=== PATIENT | female | born 1935 | race Caucasian/White ===

== ENCOUNTER → 2024-03-24 09:35 | Outpatient (REF) | payer MEDICARE, SELFPAY | LOC: RAD 09:35 | PROVIDERS: ATTENDING PHYSICIAN Internal Medicine Critical Care Medicine; FAMILY PHYSICIAN Family Medicine | DX: J47.9 Bronchiectasis, uncomplicated (principal) | CPT/HCPCS: 71250 ==

== ENCOUNTER 2024-04-30 06:28 | Day surgery (SDC) | payer MEDICARE, SELFPAY ==
[2024-04-30] VITALS (13 sets, daily range): BP systolic 97–141; BP diastolic 43–64; BMI 26.6
--- NOTE | 2024-04-30 09:30 | SUR.PHASEI ---
Pt sat's continue to drop to 86% on RA at times. Denies feeling SOB. Working on deep breathing. IS given. updated and will order a neb treatment and come and check on pt. Daughter updated over phone. Will continue to monitor pt. closely
[2024-04-30] MEDS: DUONEB 3 ML INH (09:42)
[2024-04-30 11:09] LABS: Brochalveolar Lavage Color Red; Brochalveolar Lavage Volume 5.5 ml
[2024-04-30 11:10] LABS: Brochalveolar Lavage Character Bloody (Clear)
[2024-04-30 11:10] LABS: Brochalveolar Lavage Volume 4.5 ml
[2024-04-30 11:11] LABS: Brochalveolar Lavage Character Clear (Clear); Brochalveolar Lavage Color Colorless
[2024-04-30 12:49] LABS: Brochalveolar Lavage WBC 76000 cells/ml
[2024-04-30 12:49] LABS: Brochalveolar Lavage WBC 187000 cells/ml
[2024-04-30 15:11] LABS: BAL Eosinophils 3 %; BAL Lymphocytes 9.5 %; BAL Macrophages 4 %; BAL Neutrophils 83.5 %
[2024-04-30 15:57] LABS: BAL Lymphocytes 4.5 %; BAL Macrophages 4 %; BAL Neutrophils 91.5 %
== END 2024-04-30 11:05 | disposition home or self-care (01) ==
LOC: GI 06:28
PROVIDERS: ATTENDING PHYSICIAN Internal Medicine Critical Care Medicine
DX: R05.3 Chronic cough (principal); R91.8 Other nonspecific abnormal finding of lung field; J18.1 Lobar pneumonia, unspecified organism; R09.89 Other specified symptoms and signs involving the circulatory and respiratory systems
CPT/HCPCS: 31645; 31624; 88305; 71045; 87015; 87070; 87102; 87116; 87205; 88112; 89051; 94640

== ENCOUNTER 2024-05-10 22:50 | Inpatient (IN) | payer MEDICARE, SELFPAY ==
[2024-05-10 19:46] VITALS: BP 176/82
[2024-05-10 19:54] VITALS: BMI 28.1
[2024-05-10 20:00] VITALS: BP 171/161
[2024-05-10 20:08] LABS: % Basophils 0.6 % (0-2); % Immature Granulocytes 0.5 % (0-0.5); % Lymphocytes 20.3 % (20.5-51.1); % Monocytes 9.5 % (1.7-9.3); % Neutrophils 67.1 % (42.2-75.2); Absolute Basophils 0.1 10^3/uL (0-0.2); Absolute Eosinophils 0.3 10^3/uL (0-0.7); Absolute Immature Granulocytes 0.1 10^3/uL (0-0.05); Absolute Lymphocytes 2.5 10^3/uL (1.2-3.4); Absolute Monocytes 1.2 10^3/uL (0.1-0.6); Absolute Neutrophils 8.4 10^3/uL (1.4-6.5); Hematocrit 34.3 % (37.0-47.0); Hemoglobin 12.1 g/dL (12.0-16.0); Mean Corp Hgb Conc. 35.3 g/dL (33.0-37.0); Mean Corpuscular Hgb 30.1 pg (27.0-31.0); Mean Corpuscular Volume 85.3 fL (81.0-99.0); Mean Platelet Volume 9.9 fL (7.4-10.4); Nucleated Red Blood Cells % 0 %; Platelet Count 349 10^3/uL (130-400); Red Blood Cell Count 4.02 10^6/uL (4.20-5.40); Red Cell Dist. Width 12.7 % (11.5-14.5); White Blood Cell Count 12.5 10^3/uL (4.8-10.8)
--- NOTE | 2024-05-10 20:14 | ED.MUSCINJ ---
HPI-Injury
General
Chief Complaint: Musculo-Skeletal Complaint
Source: patient and family
Exam Limitations: none
Time Seen by Provider: 05/10/24 20:13
Nursing documentation reviewed up to this point in time: agreed with
History of Present Illness-Injury
Initial Injury comments:
88-year-old female presents emergency room complaining of left hip pain after a fall. She fell backwards and hit her head.
Past History
Past History
ED Past Medical History: Cancer (Melanoma right arm), HTN, Hypercholesterolemia and Other (Macular degeneration)
ED Past Surgical History: Appendectomy
Social History
Tobacco: Non-smoker
Alcohol: None
Drug: None
Living: with family
Review of Systems
Review of Systems
Allergies reviewed?: Yes
All Other Systems: Not applicable
Constitutional: Reports no symptoms
EENT: Reports no symptoms
Respiratory: Reports no symptoms
Cardiac: Reports no symptoms
ABD/GI: Reports no symptoms
: Reports no symptoms
Musculoskeletal: Reports joint pain
Skin: Reports no symptoms
Neurological: Reports no symptoms
Endocrine: Reports no symptoms
Hematologic/Lymphatic: Reports no symptoms
Psychiatric: Reports no symptoms
Phy Exam
Physical Exam
Physical Exam:
Physical Exam
General: no apparent distress, not acutely ill
Neck: supple. no meningeal signs. normal posterior pharynx
Heart: s1/s2 regular rate and rhythm, no murmur. equal radial
pulses.
HEENT: Pupils equal round reactive to light, EOMI
Lungs: no acute respiratory distress. clear bilaterally
Abdomen: normal bowel sounds. not tender. no CVAT
Neuro: alert and oriented. no focal neurological deficits cranial nerves II through XII intact
Skin: no rash
Psychiatric: well kept. interactive and cooperative
Extremities: no edema. no calf tenderness. negative homans. good distal pulses, left leg shortened and externally rotated, proximal femur tenderness
Injury Course
Orders/Labs/Results
Orders:
Orders
05/10/24 Breakfast
Cholesterol Lowering
Cholesterol Lowering: Sodium, 2 Gram
05/10/24 19:44
Electrocardiogram (*1) Urgent
Reason for Study: Fatigue / Weakness
Hip, Left 2-3 Views [CR Hip - LT w/wo Pel 2-3 Vw*] Urgent
Comment:
Reason For Exam: fall/ pain
Include a pelvis x-ray?: Yes
05/10/24 19:45
EKG- Treatment ONCE
05/10/24 19:58
Complete Blood Count/With Diff Urgent
Comprehensive Metabolic Panel Urgent
Serum Osmolality Urgent
Comment: ADD ON
05/10/24 20:14
HYDROmorphone [Dilaudid] 1 mg IV NOW STA
Ondansetron Injectable [Zofran] 4 mg IV NOW STA
05/10/24 20:22
CT Head W/o Iv Contrast Urgent
Comment:
Reason For Exam: fall, hit head
05/10/24 20:26
Type+Screen Urgent
05/10/24 21:28
Femur, Left 2 View [CR Femur - Left Min 2 Vw] Urgent
Comment:
Reason For Exam: fall, proximal femur pain
05/10/24 22:03
Admit/Transfer Patient As Directed
Co-Sign Provider:
Level of Care: Inpatient admission
Assign to:: Medical/Surgical
Physician / Group: shefali
Diagnosis: hip fracture
Reason for Hospitalization: hip fracture
Expected length of stay greater than two midnights?: Yes
ELOS- Estimated Length of Stay in days: 3
I certify the patient meets the requirements for IP care: Yes
05/10/24 22:04
Code Status As Directed
Resuscitation Status: Full Code
05/10/24 22:08
Add On- LAB Routine
Tests Added?: serum osmolality
Urine Creatinine Routine
Urine Osmolality Random [Osmolality, Random Urine] Routine
Urine Sodium Routine
05/10/24 22:29
Consult Notification Routine
Specialty to Notify: Infectious Disease
INFECTIOUS DISEASE CONSULT Routine
Consulting Provider: Silvana Dimas
Was physician already notified: No
Reason for consult: hxt of M avium
05/10/24 23:06
Docusate Sodium [Colace] 100 mg PO BID
HYDROmorphone [Dilaudid] 0.5 mg IV Q4HPRN PRN
HydrALAZINE [Apresoline] 10 mg IV Q6HPRN PRN
Magnesium Hydroxide [Milk of Magnesia] 30 ml PO DAILYPRN PRN
Melatonin 5 mg PO HSPRN PRN
Oxycodone [Roxicodone] 5 mg PO Q4HPRN PRN
Sennosides [Senokot] 17.2 mg PO BID
Tamsulosin [Flomax] 0.4 mg PO DAILYPRN PRN
05/10/24 23:06
ORTHOPEDIC CONSULT Routine
Consulting Provider: Daniel Mahoney
Was physician already notified: Yes
Activity As Directed
Activity Level: Bedrest
Bladder Scan As Directed
Follow Bladder Retention/Intermittent Cath Algorithm?: Yes
PRN if no void in __ hours: 6
Comment: if not voiding 6 hrs upon arrival to floor, bladder scan & follow algorithm
Intake/ Output As Directed
Frequency: Per unit guidelines
Straight Cath As Directed
Frequency: Per Retention Algorithm
Additional Instructions: straight cath as needed per acute urinary retention algorithm for 24 hrs
Additional Instructions: for bladder scan greater than 400 mL
Venous Foot Pumps As Directed
Location: Bilateral feet
Vital Signs As Directed
Frequency: Per unit guidelines
DX Deep Vein Thrombosis Video Routine
05/11/24 00:00
Acetaminophen [Tylenol] 650 mg PO Q4HWA
05/11/24 Breakfast
NPO
Allow oral meds: Yes
Allow clear liquids: No
NPO for procedure after (time): 05/11 0000
05/11/24 08:00
Amlodipine [Norvasc] 5 mg PO DAILY
Atenolol [Tenormin] 50 mg PO DAILY
Cholecalciferol (Vitamin D3) [VITAMIN D3 (cholecalciferol)] 25 mcg PO DAILY
Vit C/Vit E/Lutein/Min/Trona-3 [Ocuvite Softgel] 1 cap PO DAILY
fluticasone propionate 2 spray NASAL BID
05/11/24 22:00
Atenolol [Tenormin] 25 mg PO HS
Abnormal Lab Results
05/10/24
19:58
WBC 12.5 H 10^3/uL
(4.8-10.8)
RBC 4.02 L 10^6/uL
(4.20-5.40)
Hct 34.3 L %
(37.0-47.0)
Abs Immat Gran (auto) 0.1 H 10^3/uL
(0-0.05)
Absolute Neuts (auto) 8.4 H 10^3/uL
(1.4-6.5)
Absolute Monos (auto) 1.2 H 10^3/uL
(0.1-0.6)
Lymphocytes % 20.3 L %
(20.5-51.1)
Monocytes % 9.5 H %
(1.7-9.3)
Sodium 130 L mmol/L
(135-145)
Chloride 94 L mmol/L
(98-107)
BUN 23 H mg/dl
(7-17)
Creatinine 1.2 H mg/dL
(0.6-1.0)
Glucose 116 H mg/dl
(70-99)
Alkaline Phosphatase 143 H U/L
(38-126)
05/10/24 19:58
05/10/24 19:58
MDM/Problems Addressed
Differential Diagnosis Includes:
Intracranial hemorrhage, left hip fracture
MDM/Problems Addressed:
88-year-old female with fall, left hip fracture. CT head pending, left hip x-ray pending. Plan to admit to hospitalist with orthopedic consult.
Chronic conditions affecting care: HTN
Acute Exacerbation and/or Progression of Chronic Illness: HTN
*Radiology
Radiology exam reviewed: radiology read reviewed (CT head no acute findings, left hip intertrochanteric fracture)
*EKG
Interpreted by ED Provider?: Yes
EKG Intrepretation Date: 05/10/24
EKG Intrepretation Time: 19:50
Interpretation: abnormal
Comparison EKG: no comparison EKG present
Heart Rate: 81
Rate: normal
Rhythm: sinus and PAC's
[place]: normal axis
Interval: normal interval
QRS Pattern: normal QRS
Ischemia: no ischemia
*Mat Machine Operator Interpretation
Rate: normal
Interpretation: normal
Heart Rate: 82
Rhythm: sinus
*Critical Care Note
Total Time (30-74mins, 75-104mins- exclusive of procedures): Not Applicable
ED Attending Note
-
Portions of this chart may have been created with voice recognition software.� Occasional wrong word or��sound alike� substitutions may have occurred due to the inherent limitations of voice recognition software.
Discharge Plan
Departure
Patient Disposition: Admit
Date of Disposition: 05/10/24
Time of Disposition: 21:24
Admit to: Med/Surg
Presentation/result/management discussed w/ accepting MD/DO: Hospitalist
Patient with high blood pressure during this ER visit?: Yes
Condition: Good
Discharge Problem:
Closed fracture of left hip, Fall
Interventions
Interventions:
*Risk Screen - Suicide Last Done: 05/10/24 19:53
*General Assessment Last Done: 05/10/24 19:53
*Neglect/Abuse Screening Last Done: 05/10/24 19:53
ED- Fall Risk Assessment Last Done: 05/10/24 19:56
*ED COVID-19 Vaccine History Last Done: 05/10/24 19:53
*Nursing Disposition Last Done: 05/10/24 23:34
ED-Musculoskeletal Assessment Last Done: 05/10/24 19:55
Discharge Date and Time
Discharge Date/Time: 05/10/24 23:00
[2024-05-10] MEDS: ZOFRAN 4 MG IV (20:17)
[2024-05-10] MEDS: DILAUDID 1 MG IV (20:17)
[2024-05-10 20:50] LABS: ALT (SGPT) 16 U/L (0-35); AST (SGOT) 31 U/L (14-36); Albumin 4.5 g/dl (3.5-5.0); Alkaline Phosphatase 143 U/L (38-126); Blood Urea Nitrogen 23 mg/dl (7-17); Calcium 10.2 mg/dl (8.4-10.2); Carbon Dioxide 23 mmol/L (22-30); Chloride 94 mmol/L (98-107); Estimated Creatinine Clearance 28 ml/min; Glucose 116 mg/dl (70-99); Potassium 3.8 mmol/L (3.5-5.1); Sodium 130 mmol/L (135-145); Total Bilirubin 0.5 mg/dl (0.2-1.3); Total Protein 7.5 g/dl (6.3-8.2); eGFR 43.81
--- NOTE | 2024-05-10 21:41 | HPS.HSE ---
Addendum entered and electronically signed by Jonah Vaughan DO 05/10/24 23:13:
Patient seen and examined independently. Agree with findings and mercado as set forth by SHEILA Poole.
Patient is an 88y F with PMH significant for hypertension, macular degeneration and chronic ambulatory dysfunction who presents to ED complaining of L hip pain s/p fall at home. Patient states that she was walking when she tripped on her rolling
walker and fell over. She struck her back against a door and then landed on the floor striking her L hip and her head. She denies any LOC. She denies any prodrome of chest pain, palpitations. lightheadedness or dizziness. Patient denies any
recent illness / complaints. Evaluation in the ED reveals L femur fracture.
Ass:
Left Hip Fracture
Mechanical Fall / Chronic Ambulatory Dysfunction
Benign Hypertension
Bronchiectasis
Melanoma
Macular Degeneration
Mild Hyponatremia
DAVID (new diagnosis)
Plan:
Admit for further evaluation and treatment.
Pain control / supportive care overnight.
Ortho evaluation for operative repair of L femur fracture.
Post-op PT / OT evaluations.
Hold HCTZ for now and follow for improvement in hyponatremia.
Initial hypertension in the ED much improved with pain control.
Patient has no personal history of CO, CVA, etc.
Risk of complications related to surgery / anesthesia is average for an otherwise healthy individual of her age.
Benefits of planned procedure outweigh the potential risks and patient may proceed to the OR following ID evaluation and recommendations.
Recent diagnosis of DAVID by culture (04/30/24) - has not yet started any active treatment.
Question impact on DAVID diagnosis and timing of surgery / hardware or prosthesis placement?
Will ask ID to evaluate as noted above for perioperative recommendations.
Original Note:
Family Physician
-
Family Physician: NOT KNOW UNKNOWN - PT DOES
Chief Complaint
-
left hip groin pain
History of Present Illness
88 year old with PMH for right arm melanoma, HTN, HLD, macular degeneration presented to us with left hip after a fall. patient tripped over her rollator and fell backwards. she hit back on her on the door. she was on floor for 10-20 minutes. once
she got up,she couldn't bear weight on her left leg. patient denied dizzy, lightheaded prior to the fall. denied fever, chills, chest pain,sob.denied abdominal pain, n,v,d. denied dysuria or hematuria.
HIP x ray with left femur fracture.admitting for further management.
Medical History
Past Medical History
Past Medical History: Reports Other
Additional Past Medical History:
bronchiectasis
skin melanoma
HTN
HLD
macular degeneration
Past Surgical History: Reports Appendectomy and Other
Social History
Tobacco: Non-smoker
Alcohol: Occasional
Drug: None
Living: Assisted Living
Family History
Family History: Not pertinent
Allergies / Home Medications
Allergies reflects when Allergies were last updated in [employer].
Home Medications with original date entered in [employer]
Allergy/Medication List:
Allergies
Allergy/AdvReac Type Severity Reaction Status Date / Time
No Known Allergies Allergy Verified 05/10/24 19:44
Home Medications
PreserVision AREDS 1 tab PO BID 04/30/24
acetaminophen 500 mg tablet (Tylenol Extra Strength) 500 mg PO BIDPRN PRN mild pain 04/30/24
amlodipine 5 mg tablet 5 mg PO DAILY 04/30/24
atenolol 25 mg tablet 25 mg PO HS 04/30/24
cholecalciferol (vitamin D3) 25 mcg (1,000 unit) capsule (Vitamin D3) 25 mcg PO DAILY 04/30/24
coenzyme Q10 100 mg capsule (CoQ-10) 100 mg PO DAILY 04/30/24
valsartan 160 mg-hydrochlorothiazide 25 mg tablet 1 tab PO DAILY 04/30/24
ascorbic acid (vitamin C) 500 mg tablet (Vitamin C) 500 mg PO DAILY 05/10/24
atenolol 25 mg tablet 50 mg PO DAILY 05/10/24
fluticasone propionate 50 mcg/actuation nasal spray,suspension 2 spray intranasal BID 05/10/24
melatonin 5 mg tablet 5 mg PO HSPRN PRN sleep 05/10/24
omega 4-mwx-vmz-fish oil 1,000 mg (120 mg-180 mg) capsule (Fish Oil) 1 cap PO DAILY 05/10/24
Review of Systems
-
Constitutional: Reports No Symptoms
EENT: Reports No Symptoms
Respiratory: Reports No Symptoms
Cardiac: Reports No Symptoms
Abdomen/GI: Reports No Symptoms
: Reports No Symptoms
Musculoskeletal: Reports Other (left groin/hip pain)
Skin: Reports No Symptoms
Neurological: Reports No Symptoms
Endocrine: Reports No Symptoms
Hematologic/Lymphatic: Reports No Symptoms
Psych: Reports No Symptoms
Physical Exam
Vital Signs
Vital Signs
Temp Pulse Resp BP Pulse Ox
97.7 F 76 21 171/161 96
05/10/24 19:46 05/10/24 20:30 05/10/24 20:30 05/10/24 20:00 05/10/24 20:30
Physical Exam
General: Well Developed, Well Nourished and No Apparent Distress
HEENT: NormoCephalic, Moist mucous membranes and Atraumatic
Respiratory: Clear
Cardiac: S1/S2 and Regular Rhythm; No Murmur or Rub
GI: Soft, Non Tender, Non Distended and Normal Bowel Sounds; No Organomegaly
Rectal: Deferred by Provider
Musculoskeletal: No Clubbing, No Cyanosis, No Edema and Other (left lE shortened, rotated)
Skin: No Rash
Neuro: AO x 3 and Nonfocal/grossly intact
Psych: Calm
Laboratory Results
-
05/10/24 19:58
05/10/24 19:58
Laboratory Results
Total Bilirubin 0.5 mg/dl (0.2-1.3) 05/10/24 19:58
AST 31 U/L (14-36) 05/10/24 19:58
ALT 16 U/L (0-35) 05/10/24 19:58
Alkaline Phosphatase 143 U/L (38-126) H 05/10/24 19:58
Data Reviewed
-
Diagnostic Radiology: Report Reviewed by me
CT Scan: Report Reviewed by me
Lab Data: Labs Reviewed by me
Impression/Plan
-
#left hip fracture
-maintain hip precaution
-orthopedic consulted
-head CT with No acute intracranial abnormality noted. Chronic senescent changes.
-Hip X ray with Intertrochanteric proximal left femur fracture with varus angulation and approximately one half shaft width medial displacement. No intra-articular extension or dislocation.Diffuse demineralization. Mild to moderate degenerative
changes of the pubis symphysis, both hips bilateral sacroiliac joints and partially visualized lower lumbar spine. Vascular calcifications present
-Dilaudid,oxy prn for pain
-consult PT/OT after surgical intervention
#leukocytosis likely stress reaction
-wbc 12.5
-afebrile, ctm
#hyponatremia/issac likely from hctz
-na 130, cr 1.2
-hold valsartan-hctz
-monitor BMP in am
#hypertension urgency
-BP elevated in ER
-Norvasc and atenolol continued
-hydralazine prn for SBP>160,DBP>90
#hxt of Dhara sims
-ID consulted.
#DVT prophylaxis
-scd
#CODE status
-full code
[2024-05-10 22:20] VITALS: BP 134/47
[2024-05-10 22:37] LABS: Osmolality Serum 280 mOsm/kg (275-300)
[2024-05-10 23:23] VITALS: BP 165/77
[2024-05-10 23:24] VITALS: BMI 27.0
[2024-05-10] MEDS: COLACE 100 MG PO (23:30)
[2024-05-10] MEDS: DILAUDID 0.5 MG IV (23:31)
[2024-05-10] MEDS: TYLENOL 650 MG PO (23:31)
[2024-05-10] MEDS: SENOKOT 17.2 MG PO (23:31)
--- NOTE | 2024-05-10 23:45 | PTCARENOTE ---
Pt arrived to floor via stretcher from the ED. Pt AAOx3. Pt reports left leg pain due to left femur fx. Pt able to turn and get repositioned with assistance. Pt NPO after midnight for possible OR in am. Left AC int capped. PRN pain medication
administered as ordered. Denture care provided. Pt repositioned per comfort. Call belle in reach. Will continue to monitor.
[2024-05-11] VITALS (13 sets, daily range): BP systolic 85–150; BP diastolic 45–84
[2024-05-11] MEDS: TYLENOL PO ×2 (03:29→16:33)
[2024-05-11] MEDS: DILAUDID 0.5 MG IV ×2 (05:20→11:47)
--- NOTE | 2024-05-11 08:47 | W.PN.UPDATE ---
Update Note
Progress Note Update
Patient seen and examined
88 yo F left subtroch femur fracture
NWB LLE
NPO
Pain control
Please hold DVT ppx
Plan for OR later this morning pending medical clearance and OR availability
Formal consult note to follow
[2024-05-11] MEDS: VITAMIN D3 (cholecalciferol) 25 MCG PO (08:48)
[2024-05-11] MEDS: OCUVITE SOFTGEL 1 CAP PO (08:48)
[2024-05-11] MEDS: COLACE 100 MG PO ×2 (08:48→21:29)
[2024-05-11] MEDS: TYLENOL 650 MG PO (08:48)
[2024-05-11] MEDS: SENOKOT 17.2 MG PO ×2 (08:48→21:29)
[2024-05-11] MEDS: NORVASC 5 MG PO (08:48)
[2024-05-11] MEDS: TENORMIN 50 MG PO (08:48)
--- NOTE | 2024-05-11 09:30 | W.PN.HOSP.TC ---
Today's Communication/Plan
-
await ID
OR today
follow sodium and creat
consider low dose IVF
Assessment / Plan
Assessment / Plan
pt is an 88 year old female
mechanical fall (tripped over rollator walker) with resultant left hip fracture (head CT without acute findings)--maintain hip precautions--apprec ortho--OK for OR this afternoon, not on O2--pain control--PT/OT post surgery
leukocytosis likely stress reaction vs DAVID lung infection--has not started treatment--await ID but pt has been following with pulm
hyponatremia/MEG likely from hctz--stop--cont valsartan as labs dictate--Na 130, cr 1.2
hypertension urgency--BP elevated in ER --could be contribution of pain--Norvasc and atenolol continued--hydralazine prn for SBP>160,DBP>90
DVT prophylaxis--scd
CODE status--full code
Anticipated Discharge: > 48 hours
Subjective/Interval History
-
Date of Service: May 11, 2024
pt waiting for surgery for hip repair--no c/o
Objective Data
-
Vital Signs:
max temp for 24 hours
05/10/24
23:23
Temp 98.1 F
Vital Signs
Temp Pulse Resp BP Pulse Ox
98.3 F 75 17 132/54 94
05/11/24 07:45 05/11/24 07:45 05/11/24 07:45 05/11/24 07:45 05/11/24 07:45
I&O
05/10/24 05/11/24 05/12/24
06:59 06:59 06:59
Intake Total 300 / 300
Balance 300 / 300
Review of Systems
-
All other systems: Reviewed and negative
Physical Exam
-
General: Well Developed, Well Nourished and No Apparent Distress
HEENT: Normocephalic and Atraumatic
Respiratory: Clear to Auscultation; Negative Wheezes or Rhonchi
Cardiac: Regular Rhythm and S1/S2; Negative Murmur
GI: Soft, Nontender, Nondistended and Normal Bowel Sounds
Musculoskeletal: No Clubbing, No Cyanosis, No Edema and Other (left leg shortened and externally rotated)
Skin: Warm
Neuro: Awake and Alert
Psych: Calm
[2024-05-11 10:29] LABS: Blood Urea Nitrogen 24 mg/dl (7-17); Calcium 9.5 mg/dl (8.4-10.2); Carbon Dioxide 29 mmol/L (22-30); Chloride 94 mmol/L (98-107); Estimated Creatinine Clearance 30 ml/min; Glucose 114 mg/dl (70-99); Potassium 4.7 mmol/L (3.5-5.1); Sodium 129 mmol/L (135-145); eGFR 48.63
[2024-05-11] MEDS: NSS 1000 IV (11:47)
--- NOTE | 2024-05-11 14:53 | OR.RPT ---
Operative Report
Operative Report
Anesthesia Type:
Spinal
Operative Indications:
Left peritrochanteric femur fracture
Operative Findings :
Left peritrochanteric femur fracture predominantly with subtrochanteric fracture pattern
Complications:
None
Implants:
10 mm x 340 mm long gamma nail, 95 mm cephalomedullary lag screw, 5 mm distal interlocking bolt x 2
Procedure and Technique:
Insertion left long cephalomedullary nail
INDICATIONS FOR PROCEDURE:
88-year-old female sustained a mechanical fall with complaints of left hip pain. She was seen in the emergency department diagnosed with a left peritrochanteric femur fracture. She was admitted to the medical service and orthopedics was consulted.
I had a long discussion the patient regarding diagnosis and treatment options. We discussed both surgical and nonsurgical options. After discussion we mutually agreed to proceed with operative fixation left hip fracture. We discussed risks
benefits and alternatives to surgery. We discussed the usual and expected perioperative and postoperative course. After discussion written informed consent was obtained
OPERATIVE PROCEDURE:
Patient was seen and identified in the preoperative holding area. Operative extremity was marked. All questions were addressed. She was taken to the operating room where spinal anesthesia was administered. She was placed supine on a fracture
table. Contralateral extremity was scissored and secured well-padded to the contralateral fracture post. Operative extremities placed in well-padded fracture boot. Provisional reduction was performed with axial traction slight adduction and
internal rotation. Fracture was relatively well reduced on AP but on lateral there was noted to be a flexion deformity. Operative extremities then prepped and draped in normal sterile fashion. Timeout was performed again identifying the correct
operative extremity. Preoperative antibiotics were addressed. Proximal incision was made about 5 cm in length proximal to the tip of the greater trochanter. Sharp dissection was carried through skin subcutaneous tissue deep fascial layer.
Guidepin was then placed in appropriate position tip of the greater trochanter. More distal incision was then made down to the fracture site and reduction was performed utilizing a Cecilia clamp as well as Sylvester elevator. Proximal opening reamer was
utilized and then ball-tipped guidewire was then passed beyond the fracture site to the distal femur. Holding the fracture reduced under fluoroscopic guidance, 11.5 mm reamer was then passed. Appropriately sized 340 mm long cephalomedullary screw
was then inserted to appropriate depth. Trocar was then inserted through the aiming guide and guidewire was inserted through previous incision into the femoral head and neck. Attention was made to minimize tip apex distance. Appropriately sized
supplementally screw was then placed and setscrew was then deployed. Attention was then turned to the distal interlocking bolts that were placed according to perfect sokaogon technique through additional stab incisions. Final fluoroscopic images
confirmed appropriate duction of fracture and position of the implant. Wounds were copiously irrigated with normal saline solution and closed in a layered fashion utilizing 0 Vicryl for deep fascial layer, 2-0 Vicryl for subcutaneous layer and
su for skin. Aquacel dressings were placed. Anesthesia was reversed and patient was taken to PACU in stable condition. Postoperative plans will include weightbearing to patient's tolerance operative extremity. Will recommend DVT prophylaxis
40 mg Lovenox daily for 28 days. Plan to see patient back in the office in 2 weeks for repeat evaluation.
Disposition:
PACU stable condition
--- NOTE | 2024-05-11 16:50 | CON.ORTHO ---
Consultation
-
Date/Time Consultation Requested: 930 PM 05/10/2024
Date/Time Consultation Performed: 830 AM 05/11/24
Requesting Provider: ED
Performing Provider: Denzel
Reason for Consultation: Left hip fracture
Consultation - Orthopedics
History
88-year-old female presents to the emergency department status post fall with complaints of left hip pain and inability to bear weight. She was subsequently diagnosed with a left peritrochanteric femur fracture and admitted to the hospitalist
service. Orthopedics was consulted for further evaluation and treatment. This morning patient reports that she tripped using her rollator at home. She reports that with the last week she moved into an assisted living facility with her .
She localizes pain today to the left hip and groin region. Pain is made worse with direct palpation affected area and with any motion to the left hip. Denies any associated numbness or tingling.
Allergies / Home Medications
Past medical history: Melanoma, hypertension, macular degeneration
Past surgical history: Appendectomy
Social history: Non-smoker, lives at assisted living facility with her
Family history: Not pertinent
Allergy/AdvReac Type Severity Reaction Status Date / Time
No Known Allergies Allergy Verified 05/10/24 19:44
�Medication �Instructions �Recorded
PreserVision AREDS 1 tab PO BID 04/30/24
acetaminophen 500 mg tablet 500 mg PO BIDPRN PRN mild pain 04/30/24
(Tylenol Extra Strength)
amlodipine 5 mg tablet 5 mg PO DAILY 04/30/24
atenolol 25 mg tablet 25 mg PO HS 04/30/24
cholecalciferol (vitamin D3) 25 25 mcg PO DAILY 04/30/24
mcg (1,000 unit) capsule (Vitamin
D3)
coenzyme Q10 100 mg capsule 100 mg PO DAILY 04/30/24
(CoQ-10)
valsartan 160 1 tab PO DAILY 04/30/24
mg-hydrochlorothiazide 25 mg tablet
ascorbic acid (vitamin C) 500 mg 500 mg PO DAILY 05/10/24
tablet (Vitamin C)
atenolol 25 mg tablet 50 mg PO DAILY 05/10/24
fluticasone propionate 50 2 spray intranasal BID 05/10/24
mcg/actuation nasal
spray,suspension
melatonin 5 mg tablet 5 mg PO HSPRN PRN sleep 05/10/24
omega 5-chy-zei-fish oil 1,000 mg 1 cap PO DAILY 05/10/24
(120 mg-180 mg) capsule (Fish Oil)
Vital Signs / Lab Results
Temp Pulse Resp BP Pulse Ox
98.1 F 63 13 126/51 95
05/11/24 15:50 05/11/24 16:15 05/11/24 16:15 05/11/24 16:00 05/11/24 15:50
05/10/24 19:58
05/11/24 09:53
10 point review systems reviewed and negative unless otherwise stated
General: Pleasant, no acute distress
Musculoskeletal left lower extremity
Skin intact, no erythema, no ecchymotic staining
Extremity shortened and externally rotated
Tenderness palpation over groin and lateral trochanteric flare
No ipsilateral palpable knee effusion
Positive EHL, FHL, ankle dorsiflexion, plantarflexion
Brisk cap refill distally
No other areas of bony tenderness palpation or crepitation of long bones and joints tissue examination
Diagnostic studies
X-rays left hip femur reveal left subtrochanteric femur fracture
Assessment / Plan
88-year-old female status post fall with left subtrochanteric femur fracture. I had a long detailed discussion with the patient regarding diagnosis and treatment options. We discussed both surgical and nonsurgical options. After discussion we
mutually elected to proceed with operative fixation left hip fracture. We discussed risks benefits and alternatives to surgery. We discussed the usual expected perioperative and postoperative course. After discussion written informed consent was
obtained for insertion of left cephalomedullary nail.
Nonweightbearing left lower extremity
N.p.o.
Please hold DVT prophylaxis
Pain control
Medical management per primary team
Plan: 2 OR today for operative fixation left hip fracture pending or availability and medical clearance
--- NOTE | 2024-05-11 17:56 | CM ---
met with and daughter at bedside.patient was in or having a left hip surgical fixation.patient lives with her spouse at [facility].there are no rosalva and there is an elevator to apt then bed and bath is on first level.patient amb I and
was i with her adl's.patient has never had a vn or been to ip rehab.
patient is adm after a fall with fx of left hip.she was in or for surgical repair.she will be seen by kerri post surgery.spouse mentins he would like patient to go to [facility].no referral sent.plan snf when stable for dc.
--- NOTE | 2024-05-11 18:27 | PTCARENOTE ---
Received patient from PACU around 1645 via bed in stable condition. Patient has +movement +sensation to the LLE. OOB to commode with walker and assist x 2. Pain controlled. Call belle in reach.
[2024-05-11] MEDS: ANCEF 5 IV (21:28)
[2024-05-11] MEDS: TENORMIN 25 MG PO (21:29)
[2024-05-12] MEDS: ROXICODONE 5 MG PO (02:27)
[2024-05-12 03:42] VITALS: BP 120/60
[2024-05-12 04:17] LABS: Osmolality Urine 448 mOsm/kg (300-900)
[2024-05-12 04:32] LABS: Urine Sodium 76 mmol/L (30-90)
[2024-05-12] MEDS: ANCEF 5 IV (05:48)
[2024-05-12 06:13] LABS: Hematocrit 27.9 % (37.0-47.0); Hemoglobin 9.4 g/dL (12.0-16.0); Mean Corp Hgb Conc. 33.7 g/dL (33.0-37.0); Mean Corpuscular Hgb 29.8 pg (27.0-31.0); Mean Corpuscular Volume 88.6 fL (81.0-99.0); Mean Platelet Volume 10.3 fL (7.4-10.4); Platelet Count 284 10^3/uL (130-400); Red Blood Cell Count 3.15 10^6/uL (4.20-5.40); Red Cell Dist. Width 12.8 % (11.5-14.5)
--- NOTE | 2024-05-12 06:24 | CON.ID ---
Consultation
-
Date/Time Consultation Requested: 05/11/24 12:35
Date/Time Consultation Performed: 05/11/24 12:48
Requesting Provider: Dr Kelsey
Performing Provider: Dr Renteria
Reason for Consultation: leukocytosis - DAVID
Chief Complaint / Past History
Chief Complaint
hip fracture
History of Present Illness
Late Entry for 05/11/24
88 year of female with past medical history of hypertension and chronic ambulatory dysfunction who presented here for L hip pain after a fall when she tripped. She struck her back against a door and then landed on the floor striking her L hip and
her head. No loss of consciousness. No chest pain, palpitations. lightheadedness or dizziness.
Of note she has recently undergone evaluation with pulmonary service for bronchietasis with bronchoscopy. Bronchoscopy cultures with DAVID. She has follow up scheduled in ID clinic with my partner Dr Dimas in 1 month. Today she reports no fevers,
chills, unintentional weight loss, dyspnea on exertion. She is able to climb a flight of stairs without dyspena, able to carry her laundry without dyspnea; admits that she might get short of breath if she tried to carry the laundry up the stairs
(so doesnt do it). No chronic cough or sputum production.
In the ER she was found to have a hip fracture and minimal leukocytosis. ID is asked to comment on surgical risk of infection in the setting of untreated DAVID.
Past History
Additional Past Medical History:
as per hpi
Additional Past Surgical History:
as per hpi
Allergy History:
No Known Allergies Allergy (Verified 05/10/24 19:44)
Medications Reviewed: Yes
Social History
Tobacco: Non-Smoker
Alcohol: None
Drug: None
Family History
Family History: Not Pertinent
Review of Systems
Review of Systems
General: Negative Fever
All systems: All other systems were reviewed and were negative
Vital Signs
Temp Pulse Resp BP Pulse Ox
98.6 F 77 18 120/60 99
05/12/24 03:42 05/12/24 03:42 05/12/24 03:42 05/12/24 03:42 05/12/24 03:42
Physical Exam
Physical Exam
Constitutional: No Acute Distress
Cardiovascular: Regular Rate and S1/S2; Negative Murmur or Rub
Pulmonary: Clear and Symmetric; Negative Wheezes, Rales or Rhonchi
Gastrointestinal: Soft, Non Tender, Non Distended and Normal Bowel Sounds
Skin: Warm and Dry; Negative Rash or Jaundice
seen in pacu
Lab / Diagnostic Study Results
05/12/24 05:40
Abs Immat Gran (auto) 0.1 10^3/uL (0-0.05) H 05/10/24 19:58
Absolute Neuts (auto) 8.4 10^3/uL (1.4-6.5) H 05/10/24 19:58
Absolute Lymphs (auto) 2.5 10^3/uL (1.2-3.4) 05/10/24 19:58
Absolute Monos (auto) 1.2 10^3/uL (0.1-0.6) H 05/10/24 19:58
Absolute Basos (auto) 0.1 10^3/uL (0-0.2) 05/10/24 19:58
Immature Gran % 0.5 % (0-0.5) 05/10/24 19:58
Neutrophils % 67.1 % (42.2-75.2) 05/10/24 19:58
Lymphocytes % 20.3 % (20.5-51.1) L 05/10/24 19:58
Monocytes % 9.5 % (1.7-9.3) H 05/10/24 19:58
Eosinophils % 2.0 % (0-6) 05/10/24 19:58
Basophils % 0.6 % (0-2) 05/10/24 19:58
Microbiology Results
Micro:
DAVID from bronch culture
Assessment / Plan
Late entry from 05/11
Untreated DAVID Infection
Bronchiectasis
Preoperative evaluation prior to emergent hip replacement
- DAVID is minimally symptomatic at this time, patient is frail. In her I would consider watchful waiting as a management strategy rather than starting DAVID therapy which can be difficult to tolerate in some patients, is prolonged, and would not
impact her quality of life at this time. She can be further evaluated as an outpatient and already has follow up scheduled in ID clinic in one month
- I would consider her to be at low risk for infectious complications arising from the planned procedure. No further diagnostic workup or treatment is needed prior to proceeding to OR from the ID perspective.
- Suspect leukocytosis is reactive. It does not change assessment. As she is asymptomatic would not do further evaluation.
If there are further questions, please call the organisation and methods analyst ID MD. Patient to follow up in ID clinic in 1 month as previously scheduled.
[2024-05-12 06:41] LABS: ALT (SGPT) 22 U/L (0-35); AST (SGOT) 46 U/L (14-36); Albumin 3.7 g/dl (3.5-5.0); Alkaline Phosphatase 92 U/L (38-126); Blood Urea Nitrogen 22 mg/dl (7-17); Calcium 9.7 mg/dl (8.4-10.2); Carbon Dioxide 19 mmol/L (22-30); Chloride 97 mmol/L (98-107); Estimated Creatinine Clearance 30 ml/min; Glucose 134 mg/dl (70-99); Magnesium 1.9 mg/dl (1.6-2.3); Potassium 4.4 mmol/L (3.5-5.1); Sodium 130 mmol/L (135-145); Total Bilirubin 0.6 mg/dl (0.2-1.3); Total Protein 6.4 g/dl (6.3-8.2); eGFR 48.63
[2024-05-12 07:45] VITALS: BP 147/64
[2024-05-12] MEDS: NSS 1000 IV (07:52)
[2024-05-12] MEDS: SENOKOT 17.2 MG PO ×2 (07:55→21:09)
[2024-05-12] MEDS: NORVASC 5 MG PO (07:55)
[2024-05-12] MEDS: VITAMIN D3 (cholecalciferol) 25 MCG PO (07:55)
[2024-05-12] MEDS: LOVENOX 40 MG SC (07:56)
[2024-05-12] MEDS: OCUVITE SOFTGEL 1 CAP PO (07:56)
[2024-05-12] MEDS: TENORMIN 50 MG PO (07:57)
[2024-05-12] MEDS: COLACE 100 MG PO ×2 (07:57→21:09)
[2024-05-12] MEDS: TYLENOL 650 MG PO ×3 (08:08→21:21)
[2024-05-12 09:01] VITALS: BP 140/51; BP 141/52
[2024-05-12 09:10] VITALS: BP 140/51; BP 152/51; PULSE 85; O2SAT 94
--- NOTE | 2024-05-12 09:37 | W.PN.HOSP.TC ---
Today's Communication/Plan
-
if stable in AM 05/13 then OK for d/c
Assessment / Plan
Assessment / Plan
pt is an 88 year old female
mechanical fall (tripped over rollator walker) with resultant left hip fracture (head CT without acute findings)--maintain hip precautions--apprec ortho--s/p ORIF--pain control--PT/OT post surgery--d/c planning
acute blood loss anemia from long bone fracture and dilutional from IVF--stop IVF--if HGB stable in AM, stable for d/c
leukocytosis likely stress reaction vs DAVID lung infection--has not started treatment--apprec ID but pt has been following with pulm
hyponatremia/MEG likely from hctz--stop--cont valsartan as labs dictate--Na 130, cr 1.2
hypertension urgency--BP elevated in ER --could be contribution of pain--Norvasc and atenolol continued--hydralazine prn for SBP>160,DBP>90
DVT prophylaxis--scd
CODE status--full code
Anticipated Discharge: Within 24 hours
Subjective/Interval History
-
Date of Service: May 12, 2024
pt asking to talk with the social media developer....
Objective Data
-
Labs:
Laboratory Results
05/12/24
05:40
WBC 10.0
Hgb 9.4 L D
Hct 27.9 L
Plt Count 284
Sodium 130 L
Potassium 4.4
Chloride 97 L
Carbon Dioxide 19 L
BUN 22 H
Creatinine 1.1 H
Glucose 134 H
Calcium 9.7
Total Bilirubin 0.6
AST 46 H
ALT 22
Alkaline Phosphatase 92
Vital Signs:
max temp for 24 hours
05/12/24
03:42
Temp 98.6 F
Vital Signs
Temp Pulse Resp BP Pulse Ox
98.3 F 79 16 147/64 92
05/12/24 07:45 05/12/24 07:57 05/12/24 07:45 05/12/24 07:57 05/12/24 07:45
I&O
05/11/24 05/12/24 05/13/24
06:59 06:59 06:59
Intake Total 300 / 300 1300 / 1300
Output Total 250 / 250
Balance 300 / 300 1050 / 1050
Review of Systems
-
All other systems: Reviewed and negative
Physical Exam
-
General: Well Developed, Well Nourished and No Apparent Distress
HEENT: Normocephalic and Atraumatic
Respiratory: Clear to Auscultation; Negative Wheezes or Rhonchi
Cardiac: Regular Rhythm and S1/S2; Negative Murmur
GI: Soft, Nontender, Nondistended and Normal Bowel Sounds
Musculoskeletal: No Clubbing, No Cyanosis and No Edema
Neuro: Awake and Alert
--- NOTE | 2024-05-12 10:46 | W.PN.ORTHO ---
Today's Communication / Plan
-
88-year-old female postop day 1 status post left long cephalomedullary nail fixation for subtrochanteric femur fracture doing well
Weightbearing as tolerated left lower extremity
PT OT
Pain control
DVT prophylaxis: Recommend Lovenox 40 mg daily x 28 days
Medical management per primary team
Plan: Follow-up outpatient 2 to 3 weeks with myself for repeat evaluation with planned removal of su
Subjective
.
.:
Patient resting comfortably in chair. No acute overnight events.
Vital Signs and Labs
.
Vital Signs and Labs:
Lab Results
05/12/24 05:40
05/12/24 05:40
Temp Pulse Resp BP Pulse Ox
98.3 F 79 16 147/64 92
05/12/24 07:45 05/12/24 07:57 05/12/24 07:45 05/12/24 07:57 05/12/24 07:45
Physical Exam
-
Musculoskeletal left lower extremity
Dressing with minimal bloody drainage
Moderate swelling thigh
Distal motor sensation at baseline
Brisk cap refill
--- NOTE | 2024-05-12 11:00 | CM ---
Addendum entered by Adela Farley 05/12/24 13:41:
VM left for [facility]
Original Note:
Patient seen at bedside. Patient asking about SNF vs return to [facility]. Patient spoke with CM via phone and is intrested in patient returning home if possible. Patient requested CM send referrals to [facility] and [facility]. CM sent referrals via all scripts and plan is for SNF vs home with VN pending patient ability to manage in apartment with . CM will continue to follow for discharge planning needs.
Plan; home with /VN vs SNF; pending acceptance
[2024-05-12 11:33] VITALS: BP 130/50
[2024-05-12 15:32] VITALS: BP 129/58
--- NOTE | 2024-05-12 15:50 | CHAP ---
Marlene had requested a visit. She was in good spirits - has a positive outlook and trust in God. Emotional and spiritual support provided.
[2024-05-12] MEDS: TENORMIN 25 MG PO (21:09)
[2024-05-12] MEDS: MELATONIN 5 MG PO (21:21)
[2024-05-13] VITALS (14 sets, daily range): BP systolic 115–149; BP diastolic 43–76
[2024-05-13 06:03] LABS: Mean Corp Hgb Conc. 35.6 g/dL (33.0-37.0); Mean Corpuscular Hgb 30.1 pg (27.0-31.0); Mean Corpuscular Volume 84.6 fL (81.0-99.0); Mean Platelet Volume 10.1 fL (7.4-10.4); Platelet Count 236 10^3/uL (130-400); Red Blood Cell Count 2.46 10^6/uL (4.20-5.40); Red Cell Dist. Width 12.8 % (11.5-14.5); White Blood Cell Count 7.9 10^3/uL (4.8-10.8)
[2024-05-13 06:30] LABS: Blood Urea Nitrogen 22 mg/dl (7-17); Calcium 9.3 mg/dl (8.4-10.2); Carbon Dioxide 24 mmol/L (22-30); Chloride 100 mmol/L (98-107); Estimated Creatinine Clearance 33 ml/min; Glucose 86 mg/dl (70-99); Magnesium 1.7 mg/dl (1.6-2.3); Potassium 4.2 mmol/L (3.5-5.1); Sodium 130 mmol/L (135-145); eGFR 54.53
[2024-05-13 06:32] LABS: Hematocrit 20.8 % (37.0-47.0); Hemoglobin 7.4 g/dL (12.0-16.0)
[2024-05-13] MEDS: COLACE 100 MG PO (09:07)
[2024-05-13] MEDS: VITAMIN D3 (cholecalciferol) 25 MCG PO (09:07)
[2024-05-13] MEDS: NORVASC 5 MG PO (09:11)
[2024-05-13] MEDS: TENORMIN 50 MG PO (09:11)
[2024-05-13] MEDS: OCUVITE SOFTGEL 1 CAP PO (09:11)
[2024-05-13] MEDS: LOVENOX 40 MG SC (09:12)
[2024-05-13] MEDS: SENOKOT 17.2 MG PO (09:12)
--- NOTE | 2024-05-13 09:38 | W.PN.ID1 ---
Date of Service
Date of Service: May 13, 2024
Today's Communication
ID signing off. Call PRN.
Assessment / Plan
#Left subtrochanteric femur fracture
-05/11/24 status post left long cephalomedullary nail fixation
#Untreated pulmonary DAVID
# Bronchiectasis
- DAVID is minimally symptomatic at this time, patient is frail. In her I would consider watchful waiting as a management strategy rather than starting DAVID therapy which can be difficult to tolerate in some patients, is prolonged, and would not
impact her quality of life at this time. She can be further evaluated as an outpatient and already has follow up scheduled in ID clinic with Dr. Dimas in one month
# Dry nares/hoarse voice
- Ordered [facility]
ID will sign off.
Chief Complaint
-: Other (fracture )
Subjective / Review of Systems
Feels weak. c/o nasal dryness, hoarse voice today.
Vital Signs / Physical Exam
Vital Signs
Vital Signs
Temp Pulse Resp BP Pulse Ox
98.6 F 76 16 133/51 94
05/13/24 07:32 05/13/24 09:11 05/13/24 07:32 05/13/24 09:11 05/13/24 07:32
Physical Exam
Constitutional: No Acute Distress
Head: Other (No frontal or maxillary sinus tenderness)
Eyes: No Conjunctival Hemorrhage and Sclera Anicteric
Cardiovascular: Regular Rate and S1/S2
Pulmonary: Clear
Gastrointestinal: Soft, Non Tender and Non Distended
Wound: Other (left thigh dressing intact)
Neurological: AO x 3
Objective Data
Lab Data
Lab Results
05/13/24 05:43
Estimated Creat Clear 33 ml/min 05/13/24 05:43
Total Bilirubin 0.6 mg/dl (0.2-1.3) 06/29/24 05:40
AST 46 U/L (14-36) H 05/12/24 05:40
ALT 22 U/L (0-35) 05/12/24 05:40
Alkaline Phosphatase 92 U/L (38-126) 05/12/24 05:40
Most recent labs reviewed.
--- NOTE | 2024-05-13 11:34 | W.PN.HOSP.TC ---
Today's Communication/Plan
-
anticipate d/c to SNF if HGB stable
Assessment / Plan
Assessment / Plan
pt is an 88 year old female
mechanical fall (tripped over rollator walker) with resultant left hip fracture (head CT without acute findings)--maintain hip precautions--apprec ortho--s/p ORIF--pain control--PT/OT post surgery--d/c planning
acute blood loss anemia from long bone fracture and dilutional from IVF--stop IVF--HGB down to 7.4--will transfuse 2 units pRBCs
leukocytosis likely stress reaction vs DAVID lung infection--has not started treatment--apprec ID but pt has been following with pulm
hyponatremia/MEG likely from hctz--stop--cont valsartan as labs dictate--Na 130, cr 1.2
hypertension urgency--BP elevated in ER --could be contribution of pain--Norvasc and atenolol continued--hydralazine prn for SBP>160, DBP>90
DVT prophylaxis--scd
CODE status--full code
Anticipated Discharge: 24 - 48 hours
Subjective/Interval History
-
Date of Service: May 13, 2024
pt feeling tired today
Objective Data
-
Labs:
Laboratory Results
05/13/24 05/13/24
05:43 11:00
WBC 7.9
Hgb 7.4 L D Pending
Hct 20.8 L* Pending
Plt Count 236
Sodium 130 L
Potassium 4.2
Chloride 100
Carbon Dioxide 24
BUN 22 H
Creatinine 1.0
Glucose 86
Calcium 9.3
Vital Signs:
max temp for 24 hours
05/13/24
07:32
Temp 98.6 F
Vital Signs
Temp Pulse Resp BP Pulse Ox
98.5 F 72 18 128/53 94
05/13/24 10:30 05/13/24 10:30 05/13/24 10:30 05/13/24 10:30 05/13/24 10:30
I&O
05/12/24 05/13/24 05/14/24
06:59 06:59 06:59
Intake Total 1300 / 1300 1260 / 1260 0 / 0
Output Total 250 / 250
Balance 1050 / 1050 1260 / 1260 0 / 0
Review of Systems
-
All other systems: Reviewed and negative
Constitutional: Reports Fatigue
Physical Exam
-
General: Well Developed, Well Nourished and No Apparent Distress
HEENT: Normocephalic and Atraumatic
Respiratory: Clear to Auscultation; Negative Wheezes, Rales or Rhonchi
Cardiac: Regular Rhythm, S1/S2 and Murmur
GI: Soft, Nontender, Nondistended and Normal Bowel Sounds
Musculoskeletal: No Clubbing, No Cyanosis, No Edema and Other (hip post op)
Neuro: Awake and Alert
Psych: Calm
[2024-05-13] MEDS: TYLENOL 650 MG PO (12:10)
--- NOTE | 2024-05-13 14:57 | CM ---
Addendum entered by Jeana Mcdonough 05/13/24 15:29:
Auth faxed to [phone], reference number [id number].
Original Note:
Patient seen with physician. Patient confirmed she wanted to go to SNF; [facility] accepted and CM will start process for authorization. CM will continue to follow for discharge planning needs.
Plan; SNF pending auth.
[2024-05-13] MEDS: COLACE PO (20:14)
[2024-05-13] MEDS: SENOKOT PO (20:15)
[2024-05-13] MEDS: TENORMIN 25 MG PO (21:15)
[2024-05-14 07:20] VITALS: BP 146/62
[2024-05-14 07:25] LABS: Hematocrit 30.2 % (37.0-47.0); Mean Corp Hgb Conc. 35.4 g/dL (33.0-37.0); Mean Corpuscular Hgb 30.1 pg (27.0-31.0); Mean Corpuscular Volume 84.8 fL (81.0-99.0); Mean Platelet Volume 10.1 fL (7.4-10.4); Platelet Count 262 10^3/uL (130-400); Red Blood Cell Count 3.56 10^6/uL (4.20-5.40); Red Cell Dist. Width 13.1 % (11.5-14.5); White Blood Cell Count 8.8 10^3/uL (4.8-10.8)
[2024-05-14 07:26] LABS: Hemoglobin 10.7 g/dL (12.0-16.0)
[2024-05-14 08:01] LABS: Blood Urea Nitrogen 17 mg/dl (7-17); Calcium 9.5 mg/dl (8.4-10.2); Carbon Dioxide 24 mmol/L (22-30); Chloride 97 mmol/L (98-107); Estimated Creatinine Clearance 33 ml/min; Glucose 91 mg/dl (70-99); Magnesium 1.7 mg/dl (1.6-2.3); Potassium 4.4 mmol/L (3.5-5.1); Sodium 130 mmol/L (135-145); eGFR 54.53
[2024-05-14] MEDS: TENORMIN 50 MG PO (08:18)
[2024-05-14] MEDS: LOVENOX 40 MG SC (08:18)
[2024-05-14] MEDS: VITAMIN D3 (cholecalciferol) 25 MCG PO (08:18)
[2024-05-14] MEDS: OCUVITE SOFTGEL 1 CAP PO (08:19)
[2024-05-14] MEDS: COLACE PO ×2 (08:19→20:29)
[2024-05-14] MEDS: SENOKOT PO ×2 (08:19→20:29)
[2024-05-14] MEDS: NORVASC 5 MG PO (08:19)
--- NOTE | 2024-05-14 09:01 | W.PN.HOSP.TC ---
Today's Communication/Plan
-
Monitor hemoglobin
Plan for discharge to rehab tomorrow if hemoglobin is stable
Assessment / Plan
Assessment / Plan
pt is an 88 year old female
mechanical fall (tripped over rollator walker) with resultant left hip fracture (head CT without acute findings)--maintain hip precautions--apprec ortho--s/p ORIF 05/11--pain control--PT/OT post surgery--d/c planning. DVT ppx x 4 weeks through 06/07.
Follow-up outpatient [address] Mahoney for repeat evaluation with planned removal of su.
acute blood loss anemia from long bone fracture and dilutional from IVF--stop IVF--HGB 10.7 s/p 2 units on 05/03-, increased from 7.4. Trend hemoglobin
leukocytosis likely stress reaction vs DAVID lung infection--has not started treatment--apprec ID but pt has been following with pulm
hyponatremia/MEG likely from hctz--stop--cont valsartan as labs dictate--start fluid restriction, trend sodium
hypertension urgency--BP elevated in ER --could be contribution of pain--blood pressure improved, continue Norvasc and atenolol
DVT prophylaxis--subcu Lovenox through
CODE status--full code
Total time spent to see the patient on the floor, examine the patient, review data and lab results, discuss treatment plan with patient, nursing staff around 36 minutes.
Physical Exam
General: No acute distress
HEENT: Normocephalic, Atraumatic, EOMI, MMM
Respiratory: Clear to Auscultation bilaterally
Cardiac: Normal S1/S2, Regular Rate and Rhythm
GI: Soft, Nontender, Nondistended, Normal Bowel Sounds
Extremities: No Clubbing, Cyanosis
Msk: Left hip incision dressed
Neuro: Nonfocal/Grossly Intact
Psych: Calm, Cooperative
Derm: No Visible lesions
Anticipated Discharge: Within 24 hours
Subjective/Interval History
-
Date of Service: May 14, 2024
Patient reports feeling much better after receiving her blood transfusion. She states she feels stronger. She denies chest pain, shortness of breath. She has had bowel movements. No fever, no vomiting.
Objective Data
-
Labs:
Laboratory Results
05/14/24
07:00
WBC 8.8
Hgb 10.7 L D
Hct 30.2 L
Plt Count 262
Sodium 130 L
Potassium 4.4
Chloride 97 L
Carbon Dioxide 24
BUN 17
Creatinine 1.0
Glucose 91
Calcium 9.5
Vital Signs:
Vital Signs
Temp Pulse Resp BP Pulse Ox
98.3 F 76 18 146/62 96
05/14/24 07:20 05/14/24 07:20 05/14/24 07:20 05/14/24 08:18 05/14/24 07:20
I&O
05/13/24 05/14/24 05/15/24
06:59 06:59 06:59
Intake Total 1260 / 1260 1200 / 1200
Balance 1260 / 1260 1200 / 1200
--- NOTE | 2024-05-14 09:16 | CM ---
CM received voicemail from insurance, requesting updated PT/OT notes, updated progress notes from Hospitalist, fax to [phone] for SNF auth. CM will continue to follow for all discharge planning needs.
Plan; [facility] SNF pending auth, ref #[id number].
[2024-05-14 10:37] VITALS: BP 108/58; PULSE 71; O2SAT 96
[2024-05-14] MEDS: TYLENOL 650 MG PO ×2 (13:57→21:09)
[2024-05-14] MEDS: OCEAN, SALINE MIST 2 SPRAYS NASAL ×2 (13:58→21:08)
--- NOTE | 2024-05-14 14:43 | CM ---
Addendum entered by Avis Gallegos RN 05/14/24 15:32:
Per attending, not ready today. Left voice message for [facility] regarding same.
Original Note:
Reviewed the chart notes and spoke with the patient at the bedside. IMM signed and placed on chart. Additional clinicals faxed [facility].
Auth approved 05/14-05/16, auth #[id number], fax updates to Yolanda barclay [phone] for [facility] SNF. [facility] Supervisor Patching informed. Attending and RN updated.
Plan: [facility]
Fax report to: [phone]
[2024-05-14 15:20] VITALS: BP 141/61
[2024-05-14] MEDS: TENORMIN 25 MG PO (21:09)
[2024-05-14 23:07] VITALS: BP 126/56
[2024-05-15 06:20] LABS: Hematocrit 31.8 % (37.0-47.0); Hemoglobin 11.1 g/dL (12.0-16.0); Mean Corp Hgb Conc. 34.9 g/dL (33.0-37.0); Mean Corpuscular Hgb 29.8 pg (27.0-31.0); Mean Corpuscular Volume 85.3 fL (81.0-99.0); Mean Platelet Volume 10.1 fL (7.4-10.4); Platelet Count 282 10^3/uL (130-400); Red Blood Cell Count 3.73 10^6/uL (4.20-5.40); Red Cell Dist. Width 13.2 % (11.5-14.5); White Blood Cell Count 7.6 10^3/uL (4.8-10.8)
[2024-05-15 06:54] LABS: Blood Urea Nitrogen 21 mg/dl (7-17); Calcium 9.3 mg/dl (8.4-10.2); Carbon Dioxide 24 mmol/L (22-30); Chloride 98 mmol/L (98-107); Estimated Creatinine Clearance 33 ml/min; Glucose 88 mg/dl (70-99); Magnesium 1.8 mg/dl (1.6-2.3); Potassium 4.2 mmol/L (3.5-5.1); Sodium 130 mmol/L (135-145); eGFR 54.53
[2024-05-15 07:20] VITALS: BP 140/57
--- NOTE | 2024-05-15 08:54 | W.PN.HOSP.TC ---
Today's Communication/Plan
-
Discharge today
Assessment / Plan
Assessment / Plan
pt is an 88 year old female
mechanical fall (tripped over rollator walker) with resultant left hip fracture (head CT without acute findings)--maintain hip precautions--apprec ortho--s/p ORIF 05/11--pain control--PT/OT post surgery--d/c planning. DVT ppx x 4 weeks through 06/07.
Medically stable for dc to STR today. Follow-up outpatient [address] Mahoney for repeat evaluation with planned removal of su.
acute blood loss anemia from long bone fracture and dilutional from IVF--stop IVF--HGB 11.1, was 10.7 s/p 2 units on 05/03-, increased from 7.4. Trend hemoglobin
leukocytosis likely stress reaction vs DAVID lung infection--has not started treatment--apprec ID but pt has been following with pulm
hyponatremia/MEG likely from hctz--stop--cont valsartan as labs dictate--continue fluid restriction, trend sodium
hypertension urgency--BP elevated in ER --could be contribution of pain--blood pressure improved, continue Norvasc and atenolol
Untreated pulmonary DAVID
Bronchiectasis
-- Appreciate ID input, patient is minimally symptomatic at this time. Recommend watchful waiting, follow-up with ID in the office in 1 month, patient has an appointment scheduled already.
DVT prophylaxis--subcu Lovenox
CODE status--full code
Physical Exam
General: No acute distress
HEENT: Normocephalic, Atraumatic, EOMI, MMM
Respiratory: Left basilar crackles
Cardiac: Normal S1/S2, Regular Rate and Rhythm
GI: Soft, Nontender, Nondistended, Normal Bowel Sounds
Extremities: No Clubbing, Cyanosis
Msk: Left hip incision dressed
Neuro: Nonfocal/Grossly Intact
Psych: Calm, Cooperative
Derm: No Visible lesions
Anticipated Discharge: Today
Subjective/Interval History
-
Date of Service: May 15, 2024
Feels well, denies CP/SOB. No fever, no vomiting.
Objective Data
-
Labs:
Laboratory Results
05/15/24
05:14
WBC 7.6
Hgb 11.1 L
Hct 31.8 L
Plt Count 282
Sodium 130 L
Potassium 4.2
Chloride 98
Carbon Dioxide 24
BUN 21 H
Creatinine 1.0
Glucose 88
Calcium 9.3
Vital Signs:
Vital Signs
Temp Pulse Resp BP Pulse Ox
98.3 F 69 18 140/57 93
05/15/24 07:20 05/15/24 07:20 05/15/24 07:20 05/15/24 07:20 05/15/24 07:20
I&O
05/14/24 05/15/24 05/16/24
06:59 06:59 06:59
Intake Total 1200 / 1200 1317 / 1317
Balance 1200 / 1200 1317 / 1317
[2024-05-15] MEDS: TENORMIN 50 MG PO (08:55)
[2024-05-15] MEDS: LOVENOX 40 MG SC (08:55)
[2024-05-15] MEDS: OCUVITE SOFTGEL 1 CAP PO (08:55)
[2024-05-15] MEDS: OCEAN, SALINE MIST 2 SPRAYS NASAL (08:56)
[2024-05-15] MEDS: VITAMIN D3 (cholecalciferol) 25 MCG PO (08:56)
[2024-05-15] MEDS: NORVASC 5 MG PO (08:56)
[2024-05-15] MEDS: SENOKOT PO (08:58)
[2024-05-15] MEDS: COLACE PO (08:58)
--- NOTE | 2024-05-15 09:55 | CM ---
Addendum entered by Avis Gallegos RN 05/15/24 12:48:
Call report to: [phone]
Addendum entered by Avis Gallegos RN 05/15/24 11:54:
Plan: [facility]
Fax report to: [phone]
Addendum entered by Avis Gallegos RN 05/15/24 11:54:
Kerry with [facility] notified of discharge today. Transport form provided to community mental health social worker.
Original Note:
Reviewed chart notes and spoke with the patient's daughter Rebecca via telephone. Discussed transportation options to facility. Patient could go by w/c van at [id number] cost or family could transport. Daughter will discuss with her father and
let CM know which option would be best for patient. CM continues to be available to patient/family and is monitoring medical plan for needs at discharge.
Plan: Discharge to [facility] once medically stable. Precert was obtained and provided to [facility] yesterday.
--- NOTE | 2024-05-15 12:06 | W.DCSUMMARY ---
Discharge Summary
Discharge Data
Date of Admission: 05/10/24
Date of Discharge: 05/15/24
-
Pending Results: No
Hospital Course
Discharge diagnosis:
Left hip fracture
Mechanical fall
Acute blood loss anemia from long bone fracture and surgery
Hyponatremia
Acute kidney injury
Hypertensive urgency
Leukocytosis
Mild Mycobacterium avium intracellular infection
Bronchiectasis
Consults: Orthopedic surgery, infectious disease
Procedures:
05/11/2024 insertion of left long cephalomedullary nail by Dr. Longoria
Hospital course:
88-year-old female with a past medical history of hypertension, bronchiectasis, and mild DAVID infection was admitted for a left hip fracture secondary to mechanical fall. Patient was seen in conjunction with orthopedic surgery. She underwent ORIF
of her left hip fracture on 05/11/2024.
Patient's hospital course was complicated by acute blood loss anemia. Her hemoglobin dropped to 7.4 postoperatively. She was transfused 2 units of packed red blood cells. Her hemoglobin improved to 10.7, and was 11.1 on the day of discharge.
Patient also had acute kidney injury, this resolved with IV fluids. She had hyponatremia, likely from hydrochlorothiazide use. Hydrochlorothiazide was permanently discontinued. Her sodium remained stable at 138. She will be discharged on a 48
ounce fluid restriction. She needs a repeat BMP on 05/21/2024.
Patient also had hypertensive urgency upon admission, likely from pain. Her blood pressure improved. Her blood pressure was acceptable on amlodipine and atenolol.
Patient also has a history of bronchiectasis, and mild DAVID infection. She was seen in conjunction with ID. Patient does not have any symptoms per ID. ID recommends outpatient follow-up in 1 month, patient already has an appointment.
Patient is medically stable for discharge. Orthopedic surgery recommends Lovenox 40 mg subcu daily through 06/07/2024 for DVT prophylaxis. She will be discharged to short-term rehab. If she is sent home prior to 06/07/2024, she needs to be sent
home on aspirin 325 mg through 06/07/2024 for DVT prophylaxis. She needs to follow-up with her primary care doctor 1 week after she leaves rehab, orthopedic surgery in the office in 2 weeks, and ID in the office in 4 weeks as scheduled.
Disposition: Short-term rehab
Discharge planning: Required 50 min
Discharge Plan
-
Patient Disposition: Retirement/SNF
Discharge Diagnosis/Procedures: Mechanical fall status post left hip fracture open reduction internal fixation, acute blood loss anemia from long bone fracture and delusional, leukocytosis, Mycobacterium avium intracellulare lung infection,
hyponatremia/acute kidney injury from hydrochlorothiazide, hypertensive urgency
Condition: Good
Diet: As tolerated, Regular and Restrict fluids to 48 oz
Activity: As tolerated
Driving Restrictions: No driving
Bathing Restrictions: None
Blood Work: BMP, CBC on 05/21/2024
Activity Restrictions/Additional Instructions:
Lovenox 40 mg subcu daily for blood clot prevention through 06/07.
If patient goes home, can change to aspirin 325 mg daily for blood clot prevention through 06/07.
Follow-up with your primary care doctor 1 week after you leave rehab, and orthopedic surgery in 2 weeks.
Keep your follow-up appointment with ID, Dr. Dimas in 1 month
Referrals:
Daniel Mahoney MD [Active] - in two to three weeks
UNKNOWN - PT DOES,NOT KNOW [Unknown Provider] - in less than 1 week
Silvana Dimas MD [Active] - in one month
Prescriptions:
New
enoxaparin 40 mg/0.4 mL Syringe
40 mg SC DAILY 23 Days Qty: 9.2 0RF
Saline Nasal 0.65 % Aerosol,[place]
2 sprays intranasal QIDPRN PRN (Reason: Nasal congestion) Qty: 0 0RF
Continued
atenolol 25 mg Tablet
25 mg PO HS
amlodipine 5 mg Tablet
5 mg PO DAILY
cholecalciferol (vitamin D3) [Vitamin D3] 25 mcg (1,000 unit) Capsule
25 mcg PO DAILY
coenzyme Q10 [CoQ-10] 100 mg Capsule
100 mg PO DAILY
PreserVision AREDS
1 tab PO BID
atenolol 25 mg Tablet
50 mg PO DAILY
ascorbic acid (vitamin C) [Vitamin C] 500 mg Tablet
500 mg PO DAILY
melatonin 5 mg Tablet
5 mg PO HSPRN PRN (Reason: sleep)
omega 2-glx-lbz-fish oil [Fish Oil] 1,000 mg (120 mg-180 mg) Capsule
1 cap PO DAILY
fluticasone propionate 50 mcg/actuation [place],Suspension
2 spray INTRANASAL BID
Changed
acetaminophen [Tylenol Extra Strength] 500 mg Tablet
1,000 mg PO BIDPRN PRN (Reason: mild pain) Qty: 0 0RF
Discontinued
valsartan-hydrochlorothiazide 160-25 mg Tablet
1 tab PO DAILY
Discharge Orders:
Discharge Patient (As Directed); Ordered 05/15/24
Ordered By: Farhat Leyva
Discharge Date and Time
Discharge Date/Time: 05/15/24 15:51
Print Language: THAI
[2024-05-15] MEDS: TYLENOL 650 MG PO (13:45)
[2024-05-15 15:15] VITALS: BP 145/57
== END 2024-05-15 15:51 | DRG 481 ==
LOC: 2 SOUTH 22:50
PROVIDERS: Internal Medicine; Registered Nurse; ADMITTING PHYSICIAN Hospitalist; ATTENDING PHYSICIAN Family Medicine; CONSULT PHYSICIAN Orthopaedic Surgery; EMERGENCY PHYSICIAN Emergency Medicine; FAMILY PHYSICIAN Family Medicine; OTHER PHYSICIAN Student in an Organized Health Care Education/Training Program
PROC: 0QS706Z Reposition Left Upper Femur with Intramedullary Internal Fixation Device, Open Approach (ICD-10-PCS; 2024-05-11)
DX: S72.002A Fracture of unspecified part of neck of left femur, initial encounter for closed fracture (principal); A31.0 Pulmonary mycobacterial infection; D62 Acute posthemorrhagic anemia; E87.1 Hypo-osmolality and hyponatremia; N17.9 Acute kidney failure, unspecified; M97.02XA Periprosthetic fracture around internal prosthetic left hip joint, initial encounter; S72.22XA Displaced subtrochanteric fracture of left femur, initial encounter for closed fracture; I16.0 Hypertensive urgency; J47.9 Bronchiectasis, uncomplicated; W19.XXXA Unspecified fall, initial encounter
CPT/HCPCS: 70450; 73502; 73552; 76000; 80048; 80053; 82570; 83735; 83930; 83935; 84300; 85025; 85027; 86850; 86900; 86901; 86920; 93005; 96374; 96375; 97116; 97162; 97166; 97530; 97535; 99285; C1713; C1769; P9016

== ENCOUNTER 2024-12-07 18:36 | Observation (INO) | payer OTHER, SELFPAY ==
[2024-12-07] VITALS (11 sets, daily range): BP systolic 127–174; BP diastolic 44–87; BMI 24.9; BMI 22.5
--- NOTE | 2024-12-07 15:06 | ED.GENMED ---
History of Present Illness
General
Chief Complaint: Abdominal Pain
Source: patient and family (Daughter at bedside)
Exam Limitations: none
Time Seen by Provider: 12/07/24 14:49
Nursing documentation reviewed up to this point in time: agreed with
History of Present Illness
History of Present Illness:
89-year-old female with history of HTN, HLD, cholecystectomy, appendectomy, left hip replacement presents for mid to right upper abdominal pain radiating around to right flank.
10 days ago 'I thought I had the virus.' Had N/V/D for 4 days which subsided. Saw PCP Dr. Flores 4 days ago, was feeling better but did mention right side abd pain. He said 'we'll watch it for a couple of days.'
Pain has been intermittent for 2 days and has become more constant past 2 days and 'moving more to my back.' Pain was 6/10 in [place] but now laying down 4/10. Gets some relief laying down or sitting. No aggravating factors.
Last diarrhea last night 'more loose than watery.' [place] nauseous on way here but not now. Denies UTI symptoms
She hasn't had much of an appetite since she moved into [facility] in April, doesn't like the food there. Denies F/C. Denies CP or SOB.
Past History
Past History
ED Past Medical History: Cancer (Melanoma right arm), HTN, Hypercholesterolemia and Other (Macular degeneration)
ED Past Surgical History: Appendectomy and Cholecystectomy
Social History
Tobacco: Non-smoker
Alcohol: None
Drug: None
Personal:
Living: with family (lives with in independent living at [facility])
Review of Systems
Review of Systems
Allergies reviewed?: Yes
All Other Systems: ROS reviewed and negative except as documented in HPI and ROS
Constitutional: Reports fatigue; Denies fever
Respiratory: Denies trouble breathing
Cardiac: Denies chest pain
ABD/GI: Reports abdominal pain, nausea, vomiting, diarrhea and anorexia; Denies constipated, bloody stools or black stools
: Reports flank pain (right); Denies dysuria, frequency or difficulty voiding
Musculoskeletal: Reports no symptoms; Denies edema
Skin: Reports no symptoms
Neurological: Reports no symptoms
Phy Exam
Physical Exam
Physical Exam:
GENERAL: No acute distress. A&Ox3.
CONSTITUTIONAL: Afebrile.
EYES: clear, conjunctivae normal
ENMT: moist mucus membranes, Pharynx nl
RESPIRATORY: Regular respirations, nonlabored, lungs clear.
CARDIOVASCULAR: Regular rate and rhythm, no murmurs, no rubs.
GI: Soft, mildly tender epigastric to RUQ with palpation, hypoactive BS
MUSCULOSKELETAL: Moves with ease. Well perfused. No edema
SKIN: Warm, dry, pink
PSYCH: Normal mood and affect. Well kept, interactive and appropriate
NEUROLOGIC: Awake, alert and oriented. No focal neurological deficits
Course
Orders/Labs/Results
Orders:
Orders
12/07/24 15:05
CT Abd/Pel (IV only)-DH only Urgent
Comment:
Reason For Exam: RUQ pain w back pain
12/07/24 15:31
Complete Blood Count/With Diff Urgent
Comprehensive Metabolic Panel Urgent
Lipase Urgent
Urinalysis Reflex To Culture Urgent
Date Specimen was Collected: 12/07/24
Time Specimen was Collected: 15:10
Urine Microscopic Reflex Cult Urgent
Urine Culture Urgent
BRITTANY Source: U
Specimen Description:
Date Specimen was Collected: 12/07/24
Time Specimen was Collected: 15:10
12/07/24 18:29
Admit/Transfer Patient As Directed
Co-Sign Provider:
Level of Care: Observation services
Assign to:: Medical/Surgical
Physician / Group: paul
Diagnosis: abdominal pain, back pain
PRN Pain Medication Management As Directed
May give lesser potent ordered pain med per pt: Yes
preference::
Protocol:: Medication orders for pain may be administered in a
manner that supports deferring to patient preference
when the pt is:
- Requesting an ordered lesser potent pain medication.
Least to most potent pain medications are defined
as: acetaminophen < NSAID < tramadol < opioids
(morphine, oxycodone, hydromorphone).
- Requesting a lesser dose of the same medication IF
ORDERED.
- Requesting a less intrusive route of administration
if both routes are prescribed by the provider (PO <
IV).
12/07/24 18:30
Code Status As Directed
Resuscitation Status: Full Code
Abnormal Lab Results
12/07/24
15:31
RBC 4.06 L 10^6/uL
(4.20-5.40)
Hgb 11.8 L g/dL
(12.0-16.0)
Hct 34.8 L %
(37.0-47.0)
Plt Count 416 H 10^3/uL
(130-400)
Absolute Neuts (auto) 6.7 H 10^3/uL
(1.4-6.5)
Absolute Lymphs (auto) 1.1 L 10^3/uL
(1.2-3.4)
Absolute Monos (auto) 0.8 H 10^3/uL
(0.1-0.6)
Neutrophils % 75.9 H %
(42.2-75.2)
Lymphocytes % 12.6 L %
(20.5-51.1)
Sodium 126 L mmol/L
(135-145)
Chloride 88 L mmol/L
(98-107)
Lipase 554 H U/L
(23-300)
Urine Ketones 1+ A
(Negative)
Leukocyte Esterase Rfl Trace A
(Negative)
Urine WBC (Reflex) 16-20 A /HPF
(0-5)
Urine Bacteria (Reflex) Few A
(Negative)
12/07/24 15:31
12/07/24 15:31
Vital Signs
Initial and Last Documented VS:
Initial Vital Signs
Temp Pulse Resp BP Pulse Ox
98.3 F 70 18 139/62 97
12/07/24 12:57 12/07/24 12:57 12/07/24 12:57 12/07/24 12:57 12/07/24 12:57
Last Documented Vital Signs
Temp Pulse Resp BP Pulse Ox
98.3 F 62 17 138/44 95
12/07/24 12:57 12/07/24 21:30 12/07/24 15:01 12/07/24 21:00 12/07/24 21:30
[place] D[employer] consulted with Physician
[place] [employer] consulted with physician?: Yes
Name of Physician Consulted: Goodesa
MDM/Problems Addressed
Differential Diagnosis Includes:
Viral Gastroenteritis, Choledocholithiasis, AAA, musculoskeletal
MDM/Problems Addressed:
89-year-old female with history of HTN, HLD, cholecystectomy, appendectomy, left hip replacement presents for mid to right upper abdominal pain radiating around to right flank.
10 days ago 'I thought I had the virus.' Had N/V/D for 4 days which subsided. Saw PCP Dr. Flores 4 days ago, was feeling better but did mention right side abd pain. He said 'we'll watch it for a couple of days.'
Pain has been intermittent for 2 days and has become more constant past 2 days and 'moving more to my back.' Pain was 6/10 in [place] but now laying down 4/10. Gets some relief laying down or sitting. No aggravating factors.
Last diarrhea last night 'more loose than watery.' [place] nauseous on way here but not now. Denies UTI symptoms
She hasn't had much of an appetite since she moved into [facility] in April, doesn't like the food there. Denies F/C. Denies CP or SOB.
Afebrile, NAD
4:30 p.m.
CBC with no clinically significant abnormality
CMP: Hyponatremic at 126, patient is typically hyponatremic but this is lower than her usual 129, chloride 88, otherwise normal most likely from recent n/v, decreased po intake
UA: WBC 16-20, trace leukocyte Estrace, negative nitrites, few bacteria and squamous cells. Urine culture pending
Lipase mildly elevated at 554
5:30 PM:
CT abdomen pelvis with IV only contrast radiology report read: IMPRESSION: No acute pathology of the abdomen or pelvis identified.
Severe diverticulosis. No evidence of acute diverticulitis.
Prior cholecystectomy.
Progressed mild bibasilar changes probably due to an inflammatory/infectious process. Metastatic disease not completely excluded. Clinical and laboratory correlation recommended.
Case discussed with Dr. Arroyo who agrees with admission: Hyponatremia, elevated lipase
Chronic conditions affecting care: HTN and Previous abdomnial surgery
*Critical Care Note
Total Time (30-74mins, 75-104mins- exclusive of procedures): Not Applicable
ED Attending Note
-
Portions of this chart may have been created with voice recognition software.� Occasional wrong word or��sound alike� substitutions may have occurred due to the inherent limitations of voice recognition software.
Discharge Plan
Departure
Patient Disposition: Admit
Date of Disposition: 12/07/24
Time of Disposition: 17:49
Admit to: Med/Surg
Presentation/result/management discussed w/ accepting MD/DO: Hospitalist
Condition: Fair
Discharge Problem:
Elevated lipase, Hyponatremia
Interventions
Interventions:
*Risk Screen - Suicide Last Done: 12/07/24 12:57
*General Assessment Last Done: 12/07/24 12:57
*Neglect/Abuse Screening Last Done: 12/07/24 12:57
*ED COVID-19 Vaccine History Last Done: 12/07/24 15:11
TR-Xhzqiy-Kjfjcvlocg Assessment Last Done: 12/07/24 15:11
[2024-12-07 16:06] LABS: % Basophils 1.1 % (0-2); % Eosinophils 0.9 % (0-6); % Immature Granulocytes 0.5 % (0-0.5); % Lymphocytes 12.6 % (20.5-51.1); % Neutrophils 75.9 % (42.2-75.2); Absolute Basophils 0.1 10^3/uL (0-0.2); Absolute Eosinophils 0.1 10^3/uL (0-0.7); Absolute Lymphocytes 1.1 10^3/uL (1.2-3.4); Absolute Monocytes 0.8 10^3/uL (0.1-0.6); Absolute Neutrophils 6.7 10^3/uL (1.4-6.5); Hematocrit 34.8 % (37.0-47.0); Hemoglobin 11.8 g/dL (12.0-16.0); Mean Corp Hgb Conc. 33.9 g/dL (33.0-37.0); Mean Corpuscular Hgb 29.1 pg (27.0-31.0); Mean Corpuscular Volume 85.7 fL (81.0-99.0); Mean Platelet Volume 9.6 fL (7.4-10.4); Nucleated Red Blood Cells % 0 %; Platelet Count 416 10^3/uL (130-400); Red Blood Cell Count 4.06 10^6/uL (4.20-5.40); Red Cell Dist. Width 12.7 % (11.5-14.5); White Blood Cell Count 8.8 10^3/uL (4.8-10.8)
[2024-12-07 16:13] LABS: ALT (SGPT) 17 U/L (0-35); AST (SGOT) 28 U/L (14-36); Albumin 3.9 g/dl (3.5-5.0); Alkaline Phosphatase 118 U/L (38-126); Blood Urea Nitrogen 11 mg/dl (7-17); Calcium 9.4 mg/dl (8.4-10.2); Carbon Dioxide 28 mmol/L (22-30); Chloride 88 mmol/L (98-107); Estimated Creatinine Clearance 33 ml/min; Glucose 88 mg/dl (70-99); Lipase 554 U/L (23-300); Potassium 4.1 mmol/L (3.5-5.1); Sodium 126 mmol/L (135-145); Total Bilirubin 0.7 mg/dl (0.2-1.3); Total Protein 6.8 g/dl (6.3-8.2); eGFR > 60.00
[2024-12-07 16:49] LABS: Urine Albumin Trace (Neg - Trace); Urine Bilirubin Negative (Negative); Urine Character Clear (Clear); Urine Color Yellow; Urine Glucose Negative (Negative); Urine Ketone 1+ (Negative); Urine Leukocyte Trace (Negative); Urine Nitrite Negative (Negative); Urine Occult Blood Negative (Negative); Urine Urobilinogen Negative (Neg - 1+)
[2024-12-07 16:57] LABS: Urine Bacteria Few (Negative); Urine Red Blood Cell 0-2 /HPF (0-2); Urine White Cell 16-20 /HPF (0-5)
--- NOTE | 2024-12-07 18:32 | HPS.HSE ---
Family Physician
-
Family Physician: Suresh Flores
Chief Complaint
-
abdominal pain
History of Present Illness
89-year-old female past medical history of hypertension, hyperlipidemia, bronchiectasis, mild DAVID infection, anemia, hyponatremia, presenting for mid to right upper abdominal pain radiating around the right flank. 10 days ago patient thought she
had viral infection had nausea vomiting and diarrhea for 4 days which subsided. She saw her primary care physician and felt better but had right-sided abdominal pain. Pain has been intermittent for the past 2 days and has become more constant and
more to the back. Pain is sharp. Get some relief and lying down or sitting. Pain does not get worse with eating or movement or breathing. She denies any shortness of breath or chest pain.
Denies any fevers or chills. Denies any upper respiratory symptoms.
Denies smoking or alcohol use.
Medical History
Past Medical History
Past Medical History: Reports Other ( hypertension, hyperlipidemia, bronchiectasis, mild DAVID infection, anemia, hyponatremia)
Past Surgical History: Reports None
Social History
Tobacco: Non-smoker
Alcohol: None
Drug: None
Family History
Family History: Not pertinent
Allergies / Home Medications
Allergies reflects when Allergies were last updated in [facility].
Home Medications with original date entered in [facility]
Allergy/Medication List:
Allergies
Allergy/AdvReac Type Severity Reaction Status Date / Time
No Known Allergies Allergy Verified 12/07/24 12:56
Home Medications
PreserVision AREDS 1 tab PO BID 04/30/24
amlodipine 5 mg tablet 5 mg PO DAILY 04/30/24
atenolol 25 mg tablet 25 mg PO HS 04/30/24
cholecalciferol (vitamin D3) 25 mcg (1,000 unit) capsule (Vitamin D3) 25 mcg PO DAILY 04/30/24
coenzyme Q10 100 mg capsule (CoQ-10) 100 mg PO DAILY 04/30/24
ascorbic acid (vitamin C) 500 mg tablet (Vitamin C) 500 mg PO DAILY 05/10/24
atenolol 25 mg tablet 50 mg PO DAILY 05/10/24
fluticasone propionate 50 mcg/actuation nasal spray,suspension 2 spray intranasal BID 05/10/24
melatonin 5 mg tablet 5 mg PO HSPRN PRN sleep 05/10/24
omega 1-zhe-ugb-fish oil 1,000 mg (120 mg-180 mg) capsule (Fish Oil) 1 cap PO DAILY 05/10/24
acetaminophen 500 mg tablet (Tylenol Extra Strength) 1,000 mg (2 x 500 mg) PO BIDPRN PRN mild pain #0 tabs 05/15/24
sodium chloride 0.65 % nasal spray aerosol (Saline Nasal) 2 sprays intranasal QIDPRN PRN Nasal congestion #0 mL 05/15/24
Review of Systems
-
History Source: Patient
A 12 point ROS was completed and negative except as noted: Yes
Constitutional: Reports No Symptoms
EENT: Reports No Symptoms
Respiratory: Reports No Symptoms
Cardiac: Reports See HPI
Abdomen/GI: Reports No Symptoms
: Reports No Symptoms
Musculoskeletal: Reports See HPI
Skin: Reports No Symptoms
Neurological: Reports No Symptoms
Endocrine: Reports No Symptoms
Hematologic/Lymphatic: Reports No Symptoms
Psych: Reports No Symptoms
Physical Exam
Vital Signs
Vital Signs
Temp Pulse Resp BP Pulse Ox
98.3 F 69 17 131/63 94
12/07/24 12:57 12/07/24 16:45 12/07/24 15:01 12/07/24 17:55 12/07/24 17:45
Physical Exam
General: Well Developed, Well Nourished and No Apparent Distress
HEENT: NormoCephalic, Moist mucous membranes and Atraumatic
Respiratory: Clear
Cardiac: S1/S2 and Regular Rhythm; No Murmur or Rub
GI: Soft, Non Tender, Non Distended and Normal Bowel Sounds; No Organomegaly
Rectal: Deferred by Provider
Musculoskeletal: No Clubbing, No Cyanosis and No Edema
Skin: No Rash
Neuro: Nonfocal/grossly intact
Laboratory Results
-
12/07/24 15:31
12/07/24 15:
Laboratory Results
Total Bilirubin 0.7 mg/dl (0.2-1.3) 12/07/24 15:
AST 28 U/L (14-36) 12/07/24 15:
ALT 17 U/L (0-35) 12/07/24 15:
Alkaline Phosphatase 118 U/L (38-126) 12/07/24 15:
Lipase 554 U/L (23-300) H 12/07/24 15:
Data Reviewed
-
Lab Data: Labs Reviewed by me
Old Records: Reviewed
Impression/Plan
-
IMPRESSION:
PLAN:
# Right abdominal pain/back pain seems musculoskeletal/possible costochondritis
Tenderness is on the right costal margin over the rib as well as underneath the rib radiating around to the back over the ribs to the back, does not seem to involve the flank and more superior to the flank
-No longer having gastroenteritis
-CT abdomen pelvis negative
-Tylenol, tramadol for pain
# Worsening of chronic hyponatremia secondary to recent viral gastroenteritis and decreased p.o. intake
-Has not been eating
-Clear liquid diet, advance as tolerated
Hypertension
-Continue amlodipine, atenolol,
Hyperlipidemia
Bronchiectasis
History of mild DAVID
Chronic anemia
Full code
DVT prophylaxis�heparin
Clear liquid diet
[2024-12-07] MEDS: HEPARIN 5000 UNITS SC (23:21)
[2024-12-07] MEDS: TENORMIN 25 MG PO (23:21)
[2024-12-07] MEDS: OCEAN, SALINE MIST 1 SPRAYS NASAL (23:21)
[2024-12-07] MEDS: ULTRAM 50 MG PO (23:29)
[2024-12-08 07:04] VITALS: BP 149/62
[2024-12-08 08:09] LABS: ALT (SGPT) 15 U/L (0-35); AST (SGOT) 26 U/L (14-36); Albumin 3.3 g/dl (3.5-5.0); Alkaline Phosphatase 96 U/L (38-126); Blood Urea Nitrogen 10 mg/dl (7-17); Calcium 9.2 mg/dl (8.4-10.2); Carbon Dioxide 28 mmol/L (22-30); Chloride 90 mmol/L (98-107); Estimated Creatinine Clearance 35 ml/min; Glucose 82 mg/dl (70-99); Potassium 4.2 mmol/L (3.5-5.1); Sodium 126 mmol/L (135-145); Total Bilirubin 0.6 mg/dl (0.2-1.3); eGFR > 60.00
[2024-12-08] MEDS: VITAMIN C 500 MG PO (08:19)
[2024-12-08] MEDS: NORVASC 5 MG PO (08:19)
[2024-12-08] MEDS: VITAMIN D3 (cholecalciferol) 25 MCG PO (08:20)
[2024-12-08] MEDS: TENORMIN 50 MG PO (08:21)
[2024-12-08] MEDS: OCEAN, SALINE MIST 1 SPRAYS NASAL (08:22)
[2024-12-08] MEDS: HEPARIN 5000 UNITS SC ×2 (08:22→19:33)
[2024-12-08 08:23] LABS: % Basophils 1.2 % (0-2); % Eosinophils 1.8 % (0-6); % Immature Granulocytes 0.3 % (0-0.5); % Lymphocytes 17.4 % (20.5-51.1); % Monocytes 12.5 % (1.7-9.3); % Neutrophils 66.8 % (42.2-75.2); Absolute Basophils 0.1 10^3/uL (0-0.2); Absolute Eosinophils 0.1 10^3/uL (0-0.7); Absolute Lymphocytes 1.2 10^3/uL (1.2-3.4); Absolute Monocytes 0.8 10^3/uL (0.1-0.6); Absolute Neutrophils 4.4 10^3/uL (1.4-6.5); Hematocrit 33.9 % (37.0-47.0); Hemoglobin 11.5 g/dL (12.0-16.0); Mean Corp Hgb Conc. 33.9 g/dL (33.0-37.0); Mean Corpuscular Volume 85.4 fL (81.0-99.0); Mean Platelet Volume 9.8 fL (7.4-10.4); Nucleated Red Blood Cells % 0 %; Platelet Count 397 10^3/uL (130-400); Red Blood Cell Count 3.97 10^6/uL (4.20-5.40); Red Cell Dist. Width 12.7 % (11.5-14.5); White Blood Cell Count 6.6 10^3/uL (4.8-10.8)
--- NOTE | 2024-12-08 11:14 | W.PN.HOSP.TC ---
Today's Communication/Plan
-
gentle IVF, repeat Na this afternoon
lidocaine patch
PT/OT
Assessment / Plan
Assessment / Plan
89-year-old female past medical history of hypertension, hyperlipidemia, bronchiectasis, mild DAVID infection, anemia, hyponatremia, presenting for mid to right upper abdominal pain radiating around the right flank. 10 days ago patient thought she
had viral infection had nausea vomiting and diarrhea for 4 days which subsided.
CT A/P
IMPRESSION: No acute pathology of the abdomen or pelvis identified.
Severe diverticulosis. No evidence of acute diverticulitis.
Prior cholecystectomy.
Progressed mild bibasilar changes probably due to an inflammatory/infectious process. Metastatic disease not completely excluded. Clinical and laboratory correlation recommended.
Right lower thoracic pain, suspect musculoskeletal/possible costochondritis
-Tenderness is on the right costal margin over the rib as well as underneath the rib radiating around to the back over the ribs to the back, does not seem to involve the flank and more superior to the flank
-CT abdomen pelvis without acute pathology
-Tylenol, tramadol for pain
-trial of lidocaine patch
-PT/OT
# Worsening of chronic hyponatremia secondary to recent viral gastroenteritis and decreased p.o. intake
- obtain urine studies
- IVF
-repeat Na this evening
Hypertension
-Continue amlodipine, atenolol,
Hyperlipidemia
Bronchiectasis
History of mild DAVID
Chronic anemia
Full code
DVT prophylaxis�heparin
Clear liquid diet
Anticipated Discharge: 24 - 48 hours
Subjective/Interval History
-
Date of Service: December 08, 2024
pain better
wants to eat
no pleuritic chest pain
right lower rib cage pain worse with palpation and maneuvering in bed
Objective Data
-
Labs:
Laboratory Results
12/08/24
07:18
WBC 6.6
Hgb 11.5 L
Hct 33.9 L
Plt Count 397
Sodium 126 L
Potassium 4.2
Chloride 90 L
Carbon Dioxide 28
BUN 10
Creatinine 0.8
Glucose 82
Calcium 9.2
Total Bilirubin 0.6
AST 26
ALT 15
Alkaline Phosphatase 96
Vital Signs:
Vital Signs
Temp Pulse Resp BP Pulse Ox
97.6 F 63 18 149/62 98
12/08/24 07:04 12/08/24 07:04 12/08/24 07:04 12/08/24 07:04 12/08/24 07:04
I&O
12/07/24 12/08/24 12/09/24
06:59 06:59 06:59
Intake Total 480 / 480
Balance 480 / 480
Review of Systems
-
History Source: Patient
All other systems: Reviewed and negative
Physical Exam
-
General: Well Developed, Well Nourished and No Apparent Distress
HEENT: Normocephalic and Atraumatic
Respiratory: Clear to Auscultation; Negative Wheezes, Rales or Rhonchi
Cardiac: Regular Rhythm, S1/S2 and Murmur
GI: Soft, Nontender, Nondistended and Normal Bowel Sounds
Musculoskeletal: No Clubbing, No Cyanosis, No Edema and Other (tenderness along lower right rib cage )
Neuro: Awake and Alert
Psych: Calm
Data Reviewed
-
Diagnostic Radiology: Report Reviewed by me
Labs: Labs Reviewed by me
[2024-12-08] MEDS: NSS 1000 IV (11:58)
[2024-12-08] MEDS: LIDOCAINE 4% PATCH 1 PATCH TOPICAL (11:58)
--- NOTE | 2024-12-08 15:23 | CM ---
Patient seen at bedside.
IA Completed
Lives with at [facility] in [place], no steps, elevator access
PLOF: ambulates with walker since May, had a fall
DME: Walker, shower chair, commode, transport w/c
Denies VN ( had [facility]), [facility] in past
Await PT/OT evals
Denies insecurities
PCP: Nika Flores
Pharmacy: [address], [place]
PLAN: Await PT/OT evals
[2024-12-08 15:29] VITALS: BP 135/58
[2024-12-08 16:29] VITALS: BP 135/58
[2024-12-08 18:03] LABS: Osmolality Urine 431 mOsm/kg (300-900)
[2024-12-08 18:07] LABS: Sodium 126 mmol/L (135-145)
[2024-12-08 18:18] LABS: Urine Sodium 31 mmol/L (30-90)
[2024-12-08] MEDS: OCUVITE SOFTGEL 1 CAP PO (19:31)
[2024-12-08] MEDS: TENORMIN 25 MG PO (21:05)
[2024-12-08 23:00] VITALS: BP 147/63
[2024-12-08 23:37] LABS: Sodium 128 mmol/L (135-145)
[2024-12-09 07:22] VITALS: BP 145/58
[2024-12-09 07:25] LABS: Blood Urea Nitrogen 10 mg/dl (7-17); Calcium 9.4 mg/dl (8.4-10.2); Carbon Dioxide 26 mmol/L (22-30); Chloride 95 mmol/L (98-107); Estimated Creatinine Clearance 35 ml/min; Glucose 77 mg/dl (70-99); Sodium 128 mmol/L (135-145); eGFR > 60.00
[2024-12-09] MEDS: OCUVITE SOFTGEL 1 CAP PO ×2 (08:31→20:09)
[2024-12-09] MEDS: NORVASC 5 MG PO (08:31)
[2024-12-09] MEDS: TENORMIN 50 MG PO (08:32)
[2024-12-09] MEDS: VITAMIN D3 (cholecalciferol) 25 MCG PO (08:34)
[2024-12-09] MEDS: VITAMIN C 500 MG PO (08:34)
[2024-12-09] MEDS: HEPARIN 5000 UNITS SC ×2 (08:35→20:09)
[2024-12-09] MEDS: LIDOCAINE 4% PATCH 1 PATCH TOPICAL (08:36)
--- NOTE | 2024-12-09 10:47 | W.PN.HOSP.TC ---
Today's Communication/Plan
-
suspect OK for DC tomorrow if Na stable above 130
Assessment / Plan
Assessment / Plan
89-year-old female past medical history of hypertension, hyperlipidemia, bronchiectasis, mild DAVID infection, anemia, hyponatremia, presenting for mid to right upper abdominal pain radiating around the right flank. 10 days ago patient thought she
had viral infection had nausea vomiting and diarrhea for 4 days which subsided.
CT A/P
IMPRESSION: No acute pathology of the abdomen or pelvis identified.
Severe diverticulosis. No evidence of acute diverticulitis.
Prior cholecystectomy.
Progressed mild bibasilar changes probably due to an inflammatory/infectious process. Metastatic disease not completely excluded. Clinical and laboratory correlation recommended.
Right lower thoracic pain, suspect musculoskeletal/possible costochondritis
-Tenderness is on the right costal margin over the rib as well as underneath the rib radiating around to the back over the ribs to the back, does not seem to involve the flank and more superior to the flank
-CT abdomen pelvis without acute pathology
-Tylenol, tramadol for pain
-trial of lidocaine patch - pain improved
-PT/OT - patient has no needs
Acute on chronic hyponatremia
-suspected hypovolemia given recent GI illness but urine studies suggestive more of SIADH
-Na improved from 126 to 128 on fluids, now stable at 128
-will stop IVF and fluid restrict
-repeat Na this afternoon
Hypertension
-Continue amlodipine, atenolol,
Hyperlipidemia
Bronchiectasis
History of mild DAVID
Chronic anemia
Full code
DVT prophylaxis�heparin
Clear liquid diet
Anticipated Discharge: 24 - 48 hours
Subjective/Interval History
-
Date of Service: December 09, 2024
right rib pain improved with lidocaine patch
patient did well with PT
Objective Data
-
Labs:
Laboratory Results
0112/09/24 12/09/24
23:16 06:10 15:00
Sodium 128 L 128 L Pending
Potassium 4.0
Chloride 95 L
Carbon Dioxide 26
BUN 10
Creatinine 0.8
Glucose 77
Calcium 9.4
Vital Signs:
Vital Signs
Temp Pulse Resp BP Pulse Ox
97.6 F 65 16 145/58 98
12/09/24 07:22 12/09/24 07:22 12/09/24 07:22 12/09/24 07:22 12/09/24 07:22
I&O
12/08/24 12/09/24 12/10/24
06:59 06:59 06:59
Intake Total 480 / 480 1440 / 1440
Balance 480 / 480 1440 / 1440
Review of Systems
-
History Source: Patient
All other systems: Reviewed and negative
Physical Exam
-
General: Well Developed, Well Nourished and No Apparent Distress
HEENT: Normocephalic and Atraumatic
Respiratory: Clear to Auscultation; Negative Wheezes, Rales or Rhonchi
Cardiac: Regular Rhythm, S1/S2 and Murmur
GI: Soft, Nontender, Nondistended and Normal Bowel Sounds
Musculoskeletal: No Clubbing, No Cyanosis, No Edema and Other (tenderness along lower right rib cage )
Neuro: Awake and Alert
Psych: Calm
Data Reviewed
-
Diagnostic Radiology: Report Reviewed by me
Labs: Labs Reviewed by me
[2024-12-09] MEDS: MIRALAX 17 GRAMS PO (11:24)
[2024-12-09 15:26] VITALS: BP 138/61
[2024-12-09 15:42] LABS: Sodium 129 mmol/L (135-145)
[2024-12-09 21:55] VITALS: BP 162/67
[2024-12-09] MEDS: TENORMIN 25 MG PO (21:55)
[2024-12-09 23:17] VITALS: BP 138/68
[2024-12-10] MEDS: MELATONIN 5 MG PO ×2 (00:33→21:44)
[2024-12-10] MEDS: ULTRAM 50 MG PO (01:56)
[2024-12-10 07:40] VITALS: BP 137/56
[2024-12-10] MEDS: MIRALAX 17 GRAMS PO (08:47)
[2024-12-10] MEDS: LIDOCAINE 4% PATCH 1 PATCH TOPICAL (08:47)
[2024-12-10] MEDS: HEPARIN 5000 UNITS SC ×2 (08:48→19:43)
[2024-12-10] MEDS: NORVASC 5 MG PO (08:48)
[2024-12-10] MEDS: OCUVITE SOFTGEL 1 CAP PO ×2 (08:49→19:43)
[2024-12-10] MEDS: TENORMIN 50 MG PO (08:50)
[2024-12-10] MEDS: VITAMIN C 500 MG PO (08:50)
[2024-12-10] MEDS: VITAMIN D3 (cholecalciferol) 25 MCG PO (08:50)
[2024-12-10 09:02] LABS: Blood Urea Nitrogen 8 mg/dl (7-17); Calcium 9.4 mg/dl (8.4-10.2); Carbon Dioxide 27 mmol/L (22-30); Chloride 93 mmol/L (98-107); Estimated Creatinine Clearance 35 ml/min; Glucose 82 mg/dl (70-99); Potassium 4.1 mmol/L (3.5-5.1); Sodium 127 mmol/L (135-145); eGFR > 60.00
--- NOTE | 2024-12-10 09:33 | W.PN.HOSP.TC ---
Today's Communication/Plan
-
Monitor sodium
Assessment / Plan
Assessment / Plan
Physical exam:
General: Well Developed, Well Nourished and No Apparent Distress
HEENT: Normocephalic, Atraumatic and Moist Mucous Membranes
Respiratory: Clear to Auscultation; Negative Wheezes, Rales or Rhonchi
Cardiac: Regular Rhythm and S1/S2
GI: Soft, Nontender and Nondistended
Musculoskeletal: No Clubbing, No Cyanosis and No Edema
Neuro: Awake, Alert and Oriented
Psych: Calm
A/P:
89-year-old female past medical history of hypertension, hyperlipidemia, bronchiectasis, mild DAVID infection, anemia, hyponatremia, presenting for mid to right upper abdominal pain radiating around the right flank. 10 days ago patient thought she
had viral infection had nausea vomiting and diarrhea for 4 days which subsided.
CT A/P
IMPRESSION: No acute pathology of the abdomen or pelvis identified.
Severe diverticulosis. No evidence of acute diverticulitis.
Prior cholecystectomy.
Progressed mild bibasilar changes probably due to an inflammatory/infectious process. Metastatic disease not completely excluded. Clinical and laboratory correlation recommended.
Right lower thoracic pain, suspect musculoskeletal/possible costochondritis
-Tenderness is on the right costal margin over the rib as well as underneath the rib radiating around to the back over the ribs to the back, does not seem to involve the flank and more superior to the flank
-CT abdomen pelvis without acute pathology
-Tylenol, tramadol for pain
-trial of lidocaine patch - pain fluctuating
-PT/OT - patient has no needs
Acute on chronic hyponatremia
-Etiology multifactorial including elevated ADH physiology with pain evidenced by increased urine osmolarity and also decreased oral solute intake + initial GI losses.
-Na 127 today
-Encourage oral intake and initiate salt tablets while continue with fluid restriction
-Continue to monitor sodium
Hypertension
-Continue amlodipine, atenolol,
Hyperlipidemia
Bronchiectasis
History of mild DAVID
Chronic anemia
Full code
DVT prophylaxis�heparin
Anticipated Discharge: 24 - 48 hours
Subjective/Interval History
-
Date of Service: December 10, 2024
Patient still having some flank discomfort reproducible on palpation. Decreased oral intake.
Objective Data
-
Labs:
Laboratory Results
12/10/24
06:43
Sodium 127 L
Potassium 4.1
Chloride 93 L
Carbon Dioxide 27
BUN 8
Creatinine 0.8
Glucose 82
Calcium 9.4
Vital Signs:
Vital Signs
Temp Pulse Resp BP Pulse Ox
98.1 F 59 18 137/56 96
12/10/24 07:40 12/10/24 07:40 12/10/24 07:40 12/10/24 08:48 12/10/24 07:40
I&O
12/09/24 12/10/24 12/11/24
06:59 06:59 06:59
Intake Total 1440 / 1440 420 / 420
Balance 1440 / 1440 420 / 420
[2024-12-10] MEDS: SODIUM CHLORIDE 1 GRAM PO ×2 (11:50→19:43)
[2024-12-10 15:16] VITALS: BP 115/51
--- NOTE | 2024-12-10 16:23 | CM ---
Chart reviewed. Pt's sodium is being monitored to determine d/c
No skilled PT needs at this time
Plan: Home; no needs when sodium improves
[2024-12-10] MEDS: TENORMIN 25 MG PO (21:39)
[2024-12-10 22:47] VITALS: BP 120/57
[2024-12-11 07:27] LABS: Blood Urea Nitrogen 10 mg/dl (7-17); Calcium 9.5 mg/dl (8.4-10.2); Carbon Dioxide 27 mmol/L (22-30); Chloride 94 mmol/L (98-107); Estimated Creatinine Clearance 35 ml/min; Glucose 86 mg/dl (70-99); Potassium 4.2 mmol/L (3.5-5.1); Sodium 129 mmol/L (135-145); eGFR > 60.00
[2024-12-11 07:34] VITALS: BP 153/62
[2024-12-11] MEDS: LIDOCAINE 4% PATCH 1 PATCH TOPICAL (08:11)
[2024-12-11] MEDS: OCUVITE SOFTGEL 1 CAP PO ×2 (08:12→19:25)
[2024-12-11] MEDS: VITAMIN D3 (cholecalciferol) 25 MCG PO (08:12)
[2024-12-11] MEDS: NORVASC 5 MG PO (08:12)
[2024-12-11] MEDS: VITAMIN C 500 MG PO (08:13)
[2024-12-11] MEDS: SODIUM CHLORIDE 1 GRAM PO ×2 (08:13→19:25)
[2024-12-11] MEDS: TENORMIN 50 MG PO (08:13)
[2024-12-11] MEDS: MIRALAX 17 GRAMS PO (08:13)
[2024-12-11] MEDS: HEPARIN 5000 UNITS SC ×2 (08:13→19:25)
--- NOTE | 2024-12-11 10:00 | W.PN.HOSP.TC ---
Today's Communication/Plan
-
Pain control. Monitor sodium.
Assessment / Plan
Assessment / Plan
Physical exam:
General: Well Developed, Well Nourished and No Apparent Distress
HEENT: Normocephalic, Atraumatic and Moist Mucous Membranes
Respiratory: Clear to Auscultation; Negative Wheezes, Rales or Rhonchi
Cardiac: Regular Rhythm and S1/S2
GI: Soft, Nontender and Nondistended
Musculoskeletal: No Clubbing, No Cyanosis and No Edema
Neuro: Awake, Alert and Oriented
Psych: Calm
A/P:
89-year-old female past medical history of hypertension, hyperlipidemia, bronchiectasis, mild DAVID infection, anemia, hyponatremia, presenting for mid to right upper abdominal pain radiating around the right flank. 10 days ago patient thought she
had viral infection had nausea vomiting and diarrhea for 4 days which subsided.
CT A/P
IMPRESSION: No acute pathology of the abdomen or pelvis identified.
Severe diverticulosis. No evidence of acute diverticulitis.
Prior cholecystectomy.
Progressed mild bibasilar changes probably due to an inflammatory/infectious process. Metastatic disease not completely excluded. Clinical and laboratory correlation recommended.
Right lower thoracic pain, suspect musculoskeletal/possible costochondritis
-Tenderness is on the right costal margin over the rib as well as underneath the rib radiating around to the back over the ribs to the back, does not seem to involve the flank and more superior to the flank
-CT abdomen pelvis without acute pathology
-Tylenol, tramadol for pain
-trial of lidocaine patch - pain fluctuating. She was not wearing the patch so discussed with RN and restarted today.
-PT/OT - patient has no needs
-Updated son over the phone today
Acute on chronic hyponatremia
-Etiology multifactorial including elevated ADH physiology with pain evidenced by increased urine osmolarity and also decreased oral solute intake + initial GI losses.
-Na 129 today
-Encourage oral intake and initiate salt tablets while continue with fluid restriction
-Continue to monitor sodium
Nausea
Suspect some gastritis
Started on PPI
Hypertension
-Continue amlodipine, atenolol,
Hyperlipidemia
Bronchiectasis
History of mild DAVID
Chronic anemia
Full code
DVT prophylaxis�heparin
Anticipated Discharge: 24 - 48 hours
Subjective/Interval History
-
Date of Service: December 11, 2024
Pain up and down. Nausea at times. Still not eating much. Afebrile
Objective Data
-
Labs:
Laboratory Results
12/11/24
06:26
Sodium 129 L
Potassium 4.2
Chloride 94 L
Carbon Dioxide 27
BUN 10
Creatinine 0.8
Glucose 86
Calcium 9.5
Vital Signs:
Vital Signs
Temp Pulse Resp BP Pulse Ox
97.9 F 63 20 153/62 97
12/11/24 07:34 12/11/24 08:12 12/11/24 07:34 12/11/24 08:12 12/11/24 07:34
I&O
12/10/24 12/11/24 12/12/24
06:59 06:59 06:59
Intake Total 420 / 420 840 / 840
Balance 420 / 420 840 / 840
[2024-12-11 10:09] VITALS: BMI 22.5
[2024-12-11] MEDS: ULTRAM 50 MG PO (14:10)
[2024-12-11 14:58] VITALS: BP 166/72
[2024-12-11 15:37] VITALS: BP 121/63; PULSE 76; O2SAT 97
[2024-12-11] MEDS: PROTONIX 40 MG PO (15:47)
[2024-12-11] MEDS: TYLENOL 1000 MG PO (17:23)
[2024-12-11] MEDS: TENORMIN 25 MG PO (21:02)
[2024-12-11] MEDS: MELATONIN 5 MG PO (21:02)
[2024-12-11 22:50] VITALS: BP 139/94
[2024-12-12] MEDS: TYLENOL 1000 MG PO ×2 (01:02→08:59)
[2024-12-12 07:32] VITALS: BP 132/57
[2024-12-12 07:40] LABS: Blood Urea Nitrogen 13 mg/dl (7-17); Calcium 9.7 mg/dl (8.4-10.2); Carbon Dioxide 28 mmol/L (22-30); Chloride 94 mmol/L (98-107); Estimated Creatinine Clearance 28 ml/min; Glucose 79 mg/dl (70-99); Potassium 4.3 mmol/L (3.5-5.1); Sodium 129 mmol/L (135-145); eGFR 54.19
[2024-12-12] MEDS: LIDOCAINE 4% PATCH 1 PATCH TOPICAL (08:48)
[2024-12-12] MEDS: PROTONIX 40 MG PO (08:49)
[2024-12-12] MEDS: TENORMIN 50 MG PO (08:49)
[2024-12-12] MEDS: VITAMIN C 500 MG PO (08:50)
[2024-12-12] MEDS: VITAMIN D3 (cholecalciferol) 25 MCG PO (08:50)
[2024-12-12] MEDS: SODIUM CHLORIDE 1 GRAM PO (08:50)
[2024-12-12] MEDS: HEPARIN 5000 UNITS SC (08:50)
[2024-12-12] MEDS: MIRALAX 17 GRAMS PO (08:50)
[2024-12-12] MEDS: OCUVITE SOFTGEL 1 CAP PO (08:50)
[2024-12-12] MEDS: NORVASC 5 MG PO (08:50)
--- NOTE | 2024-12-12 09:15 | W.PN.HOSP.TC ---
Today's Communication/Plan
-
D/C plan
Assessment / Plan
Assessment / Plan
Physical exam:
General: Well Developed, Well Nourished and No Apparent Distress
HEENT: Normocephalic, Atraumatic and Moist Mucous Membranes
Respiratory: Clear to Auscultation; Negative Wheezes, Rales or Rhonchi
Cardiac: Regular Rhythm and S1/S2
GI: Soft, Nontender and Nondistended
Musculoskeletal: No Clubbing, No Cyanosis and No Edema
Neuro: Awake, Alert and Oriented
Psych: Calm
A/P:
89-year-old female past medical history of hypertension, hyperlipidemia, bronchiectasis, mild DAVID infection, anemia, hyponatremia, presenting for mid to right upper abdominal pain radiating around the right flank. 10 days ago patient thought she
had viral infection had nausea vomiting and diarrhea for 4 days which subsided.
CT A/P
IMPRESSION: No acute pathology of the abdomen or pelvis identified.
Severe diverticulosis. No evidence of acute diverticulitis.
Prior cholecystectomy.
Progressed mild bibasilar changes probably due to an inflammatory/infectious process. Metastatic disease not completely excluded. Clinical and laboratory correlation recommended.
Right lower thoracic pain, suspect musculoskeletal/possible costochondritis
-Tenderness is on the right costal margin over the rib as well as underneath the rib radiating around to the back over the ribs to the back, does not seem to involve the flank and more superior to the flank
-CT abdomen pelvis without acute pathology
-Tylenol, tramadol for pain
-trial of lidocaine patch - pain fluctuating. She was not wearing the patch so discussed with RN and restarted today.
-PT/OT - patient has no needs
-Updated son over the phone today
Acute on chronic hyponatremia
-Etiology multifactorial including elevated ADH physiology with pain evidenced by increased urine osmolarity and also decreased oral solute intake + initial GI losses.
-Na 129 today
-Encourage oral intake and initiate salt tablets while continue with fluid restriction
-Continue to monitor sodium
Nausea
Suspect some gastritis
Started on PPI
Hypertension
-Continue amlodipine, atenolol,
Hyperlipidemia
Bronchiectasis
History of mild DAVID
Chronic anemia
Full code
DVT prophylaxis�heparin
Anticipated Discharge: Today
Subjective/Interval History
-
Date of Service: December 12, 2024
Feels better today
Objective Data
-
Labs:
Laboratory Results
12/12/24
06:32
Sodium 129 L
Potassium 4.3
Chloride 94 L
Carbon Dioxide 28
BUN 13
Creatinine 1.0
Glucose 79
Calcium 9.7
Vital Signs:
Vital Signs
Temp Pulse Resp BP Pulse Ox
98.4 F 64 20 132/57 97
12/12/24 07:32 12/12/24 08:49 12/12/24 07:32 12/12/24 08:49 12/12/24 07:32
I&O
12/11/24 12/12/24 12/13/24
06:59 06:59 06:59
Intake Total 840 / 840 600 / 600
Balance 840 / 840 600 / 600
--- NOTE | 2024-12-12 13:28 | W.DCSUMMARY ---
Discharge Summary
Discharge Data
Date of Admission: 12/07/24
Date of Discharge: 12/12/24
-
Pending Results: No
Hospital Course
Patient 89 years old female with history of comorbidities that presented to the hospital with musculoskeletal pain and hyponatremia. Patient was trialed on multiple medication and she responded. She also was found to have hyponatremia related to
poor oral solute intake and an element of SIADH. She was placed on fluid restriction and encourage oral intake and her sodium has improved. She will continue to monitor her sodium as outpatient within the next 1 to 2 weeks. She has participated
with PT and OT. Patient is ready to go home today. She will be discharged in relatively stable condition today.
Discharge duration: 35 minutes
Discharge Plan
-
Patient Disposition: Home with Home Care
Discharge Diagnosis/Procedures: Right lower thoracic musculoskeletal pain. Hyponatremia.
Diet: Low Cholesterol and Restrict fluids to 64 oz
Activity: As tolerated
Blood Work: Please PCP to order CBC, BMP within 1 week
Referrals:
Suresh Flores DO [Family Provider] - in less than 1 week
Prescriptions:
New
lidocaine 4 % Adhesive Patch,Medicated
1 patch topical DAILY Qty: 4 0RF
polyethylene glycol 3350 17 gram Powder In Packet
17 g PO DAILY Qty: 14 0RF
pantoprazole 40 mg Tablet,Delayed Release (Dr/Ec)
40 mg PO DAILY 14 Days Qty: 14 0RF
sodium chloride 1,000 mg Tablet,Soluble
1,000 mg PO BID Qty: 60 0RF
tramadol 50 mg Tablet
50 mg PO Q6HPRN PRN (Reason: moderate pain) Qty: 14 0RF
acetaminophen [Tylenol] 325 mg tablet
650 mg PO Q6H PRN (Reason: Pain) Qty: 30 0RF
Continued
atenolol 25 mg Tablet
25 mg PO HS
amlodipine 5 mg Tablet
5 mg PO DAILY
cholecalciferol (vitamin D3) [Vitamin D3] 25 mcg (1,000 unit) Capsule
25 mcg PO DAILY
coenzyme Q10 [CoQ-10] 100 mg Capsule
100 mg PO DAILY
PreserVision AREDS
1 tab PO BID
atenolol 25 mg Tablet
50 mg PO DAILY
ascorbic acid (vitamin C) [Vitamin C] 500 mg Tablet
500 mg PO DAILY
melatonin 5 mg Tablet
5 mg PO HSPRN PRN (Reason: sleep)
omega 1-cvx-ycn-fish oil [Fish Oil] 1,000 mg (120 mg-180 mg) Capsule
1 cap PO DAILY
fluticasone propionate 50 mcg/actuation [place],Suspension
2 spray INTRANASAL BID
Saline Nasal 0.65 % Aerosol,[place]
2 sprays intranasal QIDPRN PRN (Reason: Nasal congestion) Qty: 0 0RF
Discontinued
acetaminophen [Tylenol Extra Strength] 500 mg Tablet
1,000 mg PO BIDPRN PRN (Reason: mild pain) Qty: 0 0RF
Discharge Orders:
Discharge Patient (As Directed); Ordered 12/12/24
Ordered By: Anil Urrutia
Discharge Date and Time
Discharge Date/Time: 12/12/24 16:36
Print Language: TELUGU
--- NOTE | 2024-12-12 13:36 | CM ---
Pt is stable for d/c today.
IMM reviewed, pt given copy, copy placed on chart
Per pt, her son will transport her home
No CM needs identified at this time
Plan: Home; no needs
[2024-12-12 15:04] VITALS: BP 111/53
--- NOTE | 2024-12-12 15:30 | PTCARENOTE ---
Removed pt's iv. no noted issues.
== END 2024-12-12 16:36 | disposition home health service (06) ==
LOC: 4 WEST ACU 18:36
PROVIDERS: Emergency Medicine; Registered Nurse; Student in an Organized Health Care Education/Training Program; ADMITTING PHYSICIAN Hospitalist; ATTENDING PHYSICIAN Hospitalist; EMERGENCY PHYSICIAN Emergency Medicine; FAMILY PHYSICIAN Family Medicine
DX: R10.9 Unspecified abdominal pain (principal); I10 Essential (primary) hypertension; R10.11 Right upper quadrant pain; E78.00 Pure hypercholesterolemia, unspecified; E87.1 Hypo-osmolality and hyponatremia; R11.0 Nausea; R74.8 Abnormal levels of other serum enzymes; J47.9 Bronchiectasis, uncomplicated; D64.9 Anemia, unspecified; K57.90 Diverticulosis of intestine, part unspecified, without perforation or abscess without bleeding; M54.6 Pain in thoracic spine; R07.81 Pleurodynia; Z96.642 Presence of left artificial hip joint; Z90.49 Acquired absence of other specified parts of digestive tract; Z85.820 Personal history of malignant melanoma of skin
CPT/HCPCS: 74177; 80048; 80053; 81003; 81015; 83690; 83935; 84295; 84300; 85025; 87086; 97116; 97161; 97165; 97530; 99285; G0378; Q9967

== ENCOUNTER 2025-04-18 16:25 | Emergency (ER) | payer OTHER, SELFPAY ==
[2025-04-18 16:26] VITALS: BMI 22.9
[2025-04-18 16:28] VITALS: BP 151/58
[2025-04-18 17:00] VITALS: BP 131/62
--- NOTE | 2025-04-18 17:02 | ED.MUSCINJ ---
HPI-Injury
General
Chief Complaint: Fall
Source: patient
Exam Limitations: none
Time Seen by Provider: 04/18/25 16:44
Nursing documentation reviewed up to this point in time: agreed with
History of Present Illness-Injury
Is this injury a work related problem?: No
Is pt an associate of [facility]?: No
Initial Injury comments:
Patient states she was in her living room, turned to get her walker and fell. Hit back of head on ground. No LOC. Complains of pain and swelling ot right hand and wrist. Skin tears noted to dorsum of right hand. Brought to ED via EMS for eval.
Past History
Past History
ED Past Medical History: Cancer (Melanoma right arm), HTN, Hypercholesterolemia and Other (Macular degeneration)
ED Past Surgical History: Appendectomy and Cholecystectomy
Social History
Tobacco: Non-smoker
Alcohol: None
Drug: None
Personal:
Living: with family (lives with in independent living at [facility])
Review of Systems
Review of Systems
Allergies reviewed?: Yes
All Other Systems: ROS reviewed and negative except as documented in HPI and ROS
Constitutional: Reports no symptoms
EENT: Reports no symptoms
Respiratory: Reports no symptoms
Cardiac: Reports no symptoms
ABD/GI: Reports no symptoms
Musculoskeletal: Reports joint pain (Pain to right hand and wrist)
Skin: Reports other (Skin tears to right dorsal hand and wrist.)
Neurological: Reports no symptoms
Psychiatric: Reports no symptoms
Musculoskeletal Injury Exam
Musculoskeletal Injury Exam
Right Hand:
Pain with Movement?: Moderate
Tender to palpation?: Moderate
Soft tissue swelling?: Mild
External deformity and angulation?: None
Joint effusion?: None
Contusion?: Moderate
Hematoma-local bleeding into tissue?: Moderate
Strain- Sprain- Tear (Connective tissue injury)?: Moderate
Crepitus with movement?: No
Joint instability?: No
Malalignment/deformity?: No
Range of motion: Limited
Distal skin color and temperature: normal-warm & good color
Capillary Refill: normal
Normal distal neurovascular exam?: Yes
Peripheral Pulses: radial (right): 2+
Right Wrist:
Pain with Movement?: Moderate
Tender to palpation?: Moderate
Soft tissue swelling?: Moderate
External deformity and angulation?: None
Joint effusion?: None
Contusion?: Moderate
Hematoma-local bleeding into tissue?: Moderate
Strain- Sprain- Tear (Connective tissue injury)?: Moderate
Crepitus with movement?: No
Joint instability?: No
Malalignment/deformity?: No
Range of motion: Limited
Distal skin color and temperature: normal-warm & good color
Capillary Refill: normal
Normal distal neurovascular exam?: Yes
Phy Exam
General Physical Exam
General Presentation: moderate distress
General age: appears stated age
General Skin: warm and dry
General Habitus: normal
General Mental: alert
Pulmonary Exam
Pulmonary Exam: no respiratory distress and chest non tender
Gastrointestinal Exam
Gastrointestinal Exam: non tender and soft
Neurological Exam
Neurological Exam: alert, oriented x3, CN II-XII intact, no motor deficits, no sensory deficits and speech normal
Musculoskeletal Exam
Musculoskeletal Exam: neuro vasc intact
Skin Exam
Skin Exam: normal color, warm/dry, no rash and other (multiple superficial skin tears to right dorsal hand)
Psychiatric Exam
Psychiatric Exam: normal mood/affect
Injury Course
Orders/Labs/Results
Orders:
Orders
04/18/25 17:01
CT Head W/o Iv Contrast Urgent
Comment:
Reason For Exam: fall
Hand, Right 3 View [CR Hand - Right Min 3 Views] Urgent
Comment:
Reason For Exam: fall
Wrist, Right 3 Views [CR Wrist - Right Min 3 Views] Urgent
Comment:
Reason For Exam: fall
*Radiology
Radiology exam reviewed: radiology read reviewed
*Pulse Oximetry
Patient hypoxic: no
*Critical Care Note
Total Time (30-74mins, 75-104mins- exclusive of procedures): Not Applicable
ED Attending Note
-
Portions of this chart may have been created with voice recognition software.� Occasional wrong word or��sound alike� substitutions may have occurred due to the inherent limitations of voice recognition software.
Discharge Plan
Departure
Patient Disposition: Home (Routine Discharge)
Date of Disposition: 04/18/25
Time of Disposition: 18:47
Patient with high blood pressure during this ER visit?: No
Condition: Good
Covid-19: Not Applicable
Discharge Problem:
Head injury, Skin tear, Sprain of wrist
Instructions: Wound Care (DC), Head Injury in Adults (DC), Contusion (DC), Preventing falls in adults, Wrist Sprain ED
Prescriptions:
No Action
atenolol 25 mg Tablet
25 mg PO HS
amlodipine 5 mg Tablet
5 mg PO DAILY
cholecalciferol (vitamin D3) [Vitamin D3] 25 mcg (1,000 unit) Capsule
25 mcg PO DAILY
coenzyme Q10 [CoQ-10] 100 mg Capsule
100 mg PO DAILY
PreserVision AREDS
1 tab PO BID
atenolol 25 mg Tablet
50 mg PO DAILY
ascorbic acid (vitamin C) [Vitamin C] 500 mg Tablet
500 mg PO DAILY
melatonin 5 mg Tablet
5 mg PO HSPRN PRN (Reason: sleep)
omega 3-cul-lgr-fish oil [Fish Oil] 1,000 mg (120 mg-180 mg) Capsule
1 cap PO DAILY
fluticasone propionate 50 mcg/actuation [place],Suspension
2 spray INTRANASAL BID
Saline Nasal 0.65 % Aerosol,[place]
2 sprays intranasal QIDPRN PRN (Reason: Nasal congestion) Qty: 0 0RF
lidocaine 4 % Adhesive Patch,Medicated
1 patch topical DAILY Qty: 4 0RF
polyethylene glycol 3350 17 gram Powder In Packet
17 g PO DAILY Qty: 14 0RF
pantoprazole 40 mg Tablet,Delayed Release (Dr/Ec)
40 mg PO DAILY 14 Days Qty: 14 0RF
sodium chloride 1,000 mg Tablet,Soluble
1,000 mg PO BID Qty: 60 0RF
tramadol 50 mg Tablet
50 mg PO Q6HPRN PRN (Reason: moderate pain) Qty: 14 0RF
acetaminophen [Tylenol] 325 mg tablet
650 mg PO Q6H PRN (Reason: Pain) Qty: 30 0RF
Referrals:
Suresh Flores DO [Family Provider, Family Practice] - Follow up in 2-3 days
Interventions
Interventions:
*Risk Screen - Suicide Last Done: 04/18/25 16:26
*General Assessment Last Done: 04/18/25 16:26
*Neglect/Abuse Screening Last Done: 04/18/25 16:26
ED-Musculoskeletal Assessment Last Done: 04/18/25 16:29
ED- Neurological Assessment Last Done: 04/18/25 16:29
ED-Skin Assessment Last Done: 04/18/25 16:29
Discharge Date and Time
Print Language: LAO
== END 2025-04-18 19:12 | disposition home or self-care (01) ==
LOC: EMR 16:25
PROVIDERS: EMERGENCY PHYSICIAN Emergency Medicine; FAMILY PHYSICIAN Family Medicine
DX: S61.411A Laceration without foreign body of right hand, initial encounter (principal); S09.90XA Unspecified injury of head, initial encounter; S63.501A Unspecified sprain of right wrist, initial encounter; W19.XXXA Unspecified fall, initial encounter; E78.00 Pure hypercholesterolemia, unspecified; I10 Essential (primary) hypertension; H35.30 Unspecified macular degeneration; Z85.820 Personal history of malignant melanoma of skin; Z90.49 Acquired absence of other specified parts of digestive tract
CPT/HCPCS: 99284; 70450; 73110; 73130